=== PATIENT | female | born 1990 | race Caucasian/White ===

== ENCOUNTER 2025-04-19 16:52 | Emergency (ER) | payer OTHER, SELFPAY ==
--- OUTSIDE RECORDS SUMMARY | 2014-08-04 05:26 | XMS_ITS | Continuity of Care Document ---
Author Organization [facility] Address [address] [place] [address] Phone Care Team Providers Care Cup Machine Operator Name Role Phone Rikki Henderson MD Unavailable Unavailable Advance Directives Directive Yes / No Effective Date File Name No Information Encounters Encounter Description Practice Location Reason(s) For Visit Diagnoses Date Provider Providers Copied on Encounter [facility], [facility] [address] [place], [place], [id number], [place] tel:[phone] Psychiatry No Information Beatriz Brandt. [address] [facility], [address], [place], [place], [id number], [place]. tel:[phone] Family History Family Member Type Diagnosis Age At Onset No Information Payers Payer name Insurance type Covered green party ID Authoriza tion(s) No Information Social History Type Description Quantity Date Captured Comments Sex Female Smoking Status No Information Chief Complaint And Reason For Visit No Information History Of Present Illness Encounter Date Complaint History Of Prese nt Illness No Information Instructions Date Instruction Additional Infor mation No Information Assessments Type Assessment Date No Information
--- OUTSIDE RECORDS SUMMARY | 2025-04-15 04:30 | XMS_ITS ---
Author Organization [facility] Address [address] [place] [address] Care Team Providers Care Senior Clerk Name Role Phone Percy LUGO, Padmini Primary Care Provider Keyona Reyna Unavailable [phone] Nadeem Abdalla APRN Unavailable Unavailable Juliana Cao Unavailable [phone] REASON FOR VISIT Altered bowel habits, Diarrhea, unspecified type, Chronic gastritis without bleeding, unspecified Medications Medication SIG (Take, Route, Frequency, Duration) Notes Start Date End Date Status Dicyclomine HCl 20 MG 1 tablet Orally Three times a day as needed 03/25/2025 Active Lacosamide Active Levothyroxine Sodium *please rev iew for potential update for e-prescription and drug interaction check* Active Lisinopril 10 MG 1 tablet Orally am Active Mirtazapine 15 MG 1 tablet at bedtime Orally Once a day Active Amoxicillin-Pot Clavulanate 875-125 MG 1 tablet Orally every 12 hrs Active Atorvastatin Calcium 20 MG 1 tablet Orally Once a day Active Citalopram Hydrobromide 40 MG 1 capsule Orally pm Active Vimpat *please review f or potential update for e-prescription and drug interaction check* Unknown Zithromax Z-Quoc 250 MG 2 tablet on the first day, then 1 tablet daily for 4 days Orally Once a day for 5 day(s) 11/23/2011 Unknown Probiotic 1-250 BILLION-MG as directed Orally Active Sirolimus 2 MG 1 tablet Orally am Active Xcopri 200 MG 1 tablet Orally PM Active PROzac *please review f or potential update for e-prescription and drug interaction check* Unknown Sabril *please review f or potential update for e-prescription and drug interaction check* Unknown Pantoprazole Sodium 40 MG 1 tablets Orally twice a day for 90 days 03/26/2025 Active Pantoprazole Sodium 40 MG 1 tablet Orally twice a day Active Social History Tobacco Use: Social History Observation Description Date Details (start date - stop date) Never Smoker NA - NA Tobacco Control (Standard) Question Answer Notes Tobacco use: Nonsmoker Problems Problem Type SNOMED Code ICD Code Onset Dates Problem Status W/U Status Risk Notes Problem Dysphagia (33167487) Dysphagia, unspecified type (R13.10) Active confirmed Encounters Encounter Location Date Provider Diagnosis [facility] [address] [place] [address] DR [place], [place] [id number] 04/15/2025 Juliana Cao Dysphagia, unspecified type R13.10 ; History of gastroesophageal reflux (GERD) Z87.19 and Diarrhea, unspecified type R19.7 Assessments Encounter Date Diagnosis (ICD Code) Assessment Notes Treatment Notes Treatment Clinical Notes Section Notes 04/15/2025 Dysphagia, unspecified type (ICD-10 - R13.10) Proceed with diagnostic EGD today. 04/15/2025 History of gastroesophageal reflux (GERD) (ICD-10 - Z87.19) Proceed with diagnostic EGD today. 04/15/2025 Diarrhea, unspecified type (ICD-10 - R19.7) Proceed with diagnostic colonoscopy today. Plan Of Treatment Treatment Notes Assessment Notes Dysphagia, unspecified type Proceed with diagnostic EGD today. History of gastroesophageal reflux (GERD ) Proceed with diagnostic EGD today. Diarrhea, unspecified type Proceed with diagnostic colonoscopy today. 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 Altered bowel habits, Diarrhea, unspecified type, Chronic gastritis without bleeding, unspecified. * HPI: P jose Note: Ms. Briones is a 34-year-old female patient presenting today for diagnostic EGD and colonoscopy for evaluation of diarrhea, change in bowel habits, and reflux despite PPI therapy. The patient reports hospitalization in [place] at the beginning of March due to respiratory atelectasis and hypoxia. Patient with history of complicated tuberculosis, treated in [facility] clinic. Reflux uncontrolled despite daily pantoprazole, with occasional dysphagia. She reports cramping abdominal discomfort and frequent watery diarrhea over the last 2 months. * ROS: G eneral - Multi System: Constitutional D enies fever, chills, body aches. . C ardiovascular D enies c hest pain, palpitations or syncope. R espiratory D enies shortness of breath. G astrointestinal R eports dysphagia., See HPI. . * Medical History: T uberous sclerosis, Hypothryoidism. * Surgical History: K idney Ablasion 2017, Gall Bladder Removal 09/2023. * Family History: M other: alive. no family hx of colon cancer. * Social History: T obacco Use: T obacco Control (Standard) T obacco use: N onsmoker * Medications: T aking Citalopram Hydrobromide 40 MG Tablet 1 capsule Orally pm , Taking Dicyclomine HCl 20 MG Tablet 1 tablet Orally Three times a day as needed , Taking Lacosamide , Taking Levothyroxine Sodium , Notes to Pharmacist: *please review for potential update for e-prescription and drug interaction check*, Taking Lisinopril 10 MG Tablet 1 tablet Orally am , Taking Pantoprazole Sodium 40 MG Tablet Delayed Release 1 tablet Orally twice a day , Taking Pantoprazole Sodium 40 MG Tablet Delayed Release 1 tablets Orally twice a day , Taking Sirolimus 2 MG Tablet 1 tablet Orally am , Taking Xcopri 200 MG Tablet 1 tablet Orally PM , Taking Probiotic 1-250 BILLION-MG Capsule as directed Orally , Taking Amoxicillin-Pot Clavulanate 875-125 MG Tablet 1 tablet Orally every 12 hrs , Taking Mirtazapine 15 MG Tablet 1 tablet at bedtime Orally Once a day , Taking Atorvastatin Calcium 20 MG Tablet 1 tablet Orally Once a day , Unknown PROzac , Notes to Pharmacist: *please review for potential update for e- prescription and drug interaction check*, Unknown Sabril , Notes to Pharmacist: *please review for potential update for e-prescription and drug interaction check*, Unknown Vimpat , Notes to Pharmacist: *please review for potential update for e-prescription and drug interaction check*, Unknown Zithromax Z-Quoc 250 MG Tablet 2 tablet on the first day, then 1 tablet daily for 4 days Orally Once a day Objective: * Vitals: * Examination: G eneral Examination: GENERAL APPEARANCE: A lert, comfortable, in no acute distress. HEART: R egular rate and rhythm.. LUNGS: N on-labored respirations. Clear bilaterally. Symmetrical.. ABDOMEN: N ormal, Soft, Non-tender, positive bowel sounds.? Assessment: * Assessment: 1. D ysphagia, unspecified type - R13.10 (Primary) 2 . H istory of gastroesophageal reflux (GERD) - Z87.19 3 . D iarrhea, unspecified type - R19.7 ? Plan: * Treatment: 2. H istory of gastroesophageal reflux (GERD) Notes: Proceed with diagnostic EGD today. 3. D iarrhea, unspecified type Notes: Proceed with diagnostic colonoscopy today. * Billing Information: * Visit Code: * Procedure Codes: * Electronic signature of Abod kilo Cao MD on 04/19/2025 at 05:02 PM CDT Sign off status: Pending * Provider: Nickolas Cao MD Date: 04/15/2025 Generated for Taylor carias/Jack/Sarah on: 04/19/2025 05:02 PM CDT History and Physical Notes * HPI (History of Present Illness) Category Sub-Category Detail Notes Category Not es Provider Note Ms. Briones is a 34-year-old female patient presenting today for diagnostic EGD and colonoscopy for evaluation of diarrhea, change in bowel habits, and reflux despite PPI therapy. The patient reports hospitalization in [place] at the beginning of March due to respiratory atelectasis and hypoxia. Patient with history of complicated tuberculosis, treated in [facility] TB clinic. Reflux uncontrolled despite daily pantoprazole, with occasional dysphagia. She reports cramping abdominal discomfort and frequent watery diarrhea over the last 2 months. Examination Category Sub-Category Detail Notes Category Not es General Examination GENERAL APPEARANCE: Alert, c omfortable, in no acute distress HEART: Regular rate and rhy thm. LUNGS: Non-labored respirat ions. Clear bilaterally. Symmetrical. ABDOMEN: Normal, Soft, Non-te nder, positive bowel sounds
--- OUTSIDE RECORDS SUMMARY | 2025-04-15 10:51 | XMS_ITS ---
Author Organization [facility] Address [address] [place], [place] [id number] Care Team Providers Care Implementation Specialist Name Role Phone Padmini Greer Primary Care Provider REASON FOR VISIT medication Medications Medication SIG (Take, Route, Frequency, Duration) Notes Start Date End Date Status Levothyroxine Sodium 25 MCG 1 tablet in the morning on an empty stomach Oral Once a day for 30 days Active Atorvastatin Calcium 20 MG 1 tablet Oral Once a day for 30 days Active Lacosamide 200 MG 1 tablet Oral Twice a day for 30 days Active Sirolimus 1 MG 1 tablet Oral Once a day for 30 days Active Xcopri 200 MG 1 tablet Oral Once a day HS for 30 days Active Dicyclomine HCl 20 MG 1 tablet Orally Three times a day for 30 days for stomach 04/07/2025 Active Pantoprazole Sodium 40 MG 1 tablet about 1 hour before morning meal Oral twice a day for 30 days Active Lisinopril 10 MG 1 tablet Oral Once a day for 30 days Active Mirtazapine 7.5 MG 2 tablets Orally Once a day for 30 days for appetite 03/24/2025 Active home oxygen concentrator 2-3 L/min per NC to keep pulse ox above 93%. With associated supplies and with portable tanks, portable concentrator for 365 days Active oxygen concentrator Active Ondansetron 4 MG 1 tablet on the tongue and allow to dissolve Oral 3 times a day for 5 days As needed rx not sent Not-Taking Oxygen 2 Liters daily nasal prn Active Xcopri 50 MG 1 tablet Oral Once a day HS for 30 days stopped about a month ago Not-Taking Tylenol 325 MG 1 tablet as needed Orally every 6 hrs usually gives 2 tabs Active Citalopram Hydrobromide 40 MG 1 tablet Oral Once a day for 30 days Active Multivitamin - 1 tablet Orally Once a day Active MiraLax 17 GM/SCOOP 1 scoop mixed with 8 ounces of fluid Orally Once a day Active Biotin 5000 1 daily Active Famotidine 20 MG 1 tablet at bedtime for stomach Orally Once a day for 30 days 04/05/2025 Active Encounters Encounter Location Date Provider Diagnosis [facility] [address] [place] [phone] 04/15/2025 Padmini Greer Plan Of Treatment Next Appt Details Provider Name:Padmini conde, 05/13/2025 11:00:00 AM, [address], [place], [phone], Progress Notes * Jinny BRIONES DDOB:1990 (34 yo F)Acc No.[id number]:04/15/2025 Patient: Rafaela Jinny WATTERS :1990 A ge:34 Y S ex:Female Address:[address] [place] [address], [place], [address] Subjective: * Chief Complaints: * M edication * Medical History: * Surgical History: * Hospitalization/Major Diagno stic Procedure: * Medications: T akingTylenol 325 MG Tablet 1 tablet as needed Orally every 6 hrs , Notes to Pharmacist: usually gives 2 tabshome oxygen concentrator 2-3 L/min per NC to keep pulse ox above 93%. With associated supplies and with portable tanks, portable concentrator Pantoprazole Sodium 40 MG Tablet Delayed Release 1 tablet about 1 hour before morning meal Oral twice a day Dicyclomine HCl 20 MG Tablet 1 tablet Orally Three times a day for stomachMirtazapine 7.5 MG Tablet 2 tablets Orally Once a day for appetiteLisinopril 10 MG Tablet 1 tablet Oral Once a day Atorvastatin Calcium 20 MG Tablet 1 tablet Oral Once a day Levothyroxine Sodium 25 MCG Tablet 1 tablet in the morning on an empty stomach Oral Once a day Sirolimus 1 MG Tablet 1 tablet Oral Once a day Lacosamide 200 MG Tablet 1 tablet Oral Twice a day Xcopri 200 MG Tablet 1 tablet Oral Once a day HS Famotidine 20 MG Tablet 1 tablet at bedtime for stomach Orally Once a day Citalopram Hydrobromide 40 MG Tablet 1 tablet Oral Once a day MiraLax 17 GM/SCOOP Powder 1 scoop mixed with 8 ounces of fluid Orally Once a day Multivitamin - Tablet 1 tablet Orally Once a day Biotin 5000 , Notes to Pharmacist: 1 dailyoxygen concentrator Oxygen 2 Liters nasal canula daily nasal prn Taking Tylenol 325 MG Tablet 1 tablet as needed Orally every 6 hrs , Notes to Pharmacist: usually gives 2 tabsTaking home oxygen concentrator 2-3 L/min per NC to keep pulse ox above 93%. With associated supplies and with portable tanks, portable concentrator Taking Pantoprazole Sodium 40 MG Tablet Delayed Release 1 tablet about 1 hour before morning meal Oral twice a day Taking Dicyclomine HCl 20 MG Tablet 1 tablet Orally Three times a day for stomachTaking Mirtazapine 7.5 MG Tablet 2 tablets Orally Once a day for appetiteTaking Lisinopril 10 MG Tablet 1 tablet Oral Once a day Taking Atorvastatin Calcium 20 MG Tablet 1 tablet Oral Once a day Taking Levothyroxine Sodium 25 MCG Tablet 1 tablet in the morning on an empty stomach Oral Once a day Taking Sirolimus 1 MG Tablet 1 tablet Oral Once a day Taking Lacosamide 200 MG Tablet 1 tablet Oral Twice a day Taking Xcopri 200 MG Tablet 1 tablet Oral Once a day HS Taking Famotidine 20 MG Tablet 1 tablet at bedtime for stomach Orally Once a day Taking Citalopram Hydrobromide 40 MG Tablet 1 tablet Oral Once a day Taking MiraLax 17 GM/SCOOP Powder 1 scoop mixed with 8 ounces of fluid Orally Once a day Taking Multivitamin - Tablet 1 tablet Orally Once a day Taking Biotin 5000 , Notes to Pharmacist: 1 dailyTaking oxygen concentrator Taking Oxygen 2 Liters nasal canula daily nasal prn Not-TakingOndansetron 4 MG Tablet Disintegrating 1 tablet on the tongue and allow to dissolve Oral 3 times a day As needed, Notes to Pharmacist: rx not sentXcopri 50 MG Tablet 1 tablet Oral Once a day HS , Notes to Pharmacist: stopped about a month agoMedication List reviewed and reconciled with the patientNot-Taking Ondansetron 4 MG Tablet Disintegrating 1 tablet on the tongue and allow to dissolve Oral 3 times a day As needed, Notes to Pharmacist: rx not sentNot-Taking Xcopri 50 MG Tablet 1 tablet Oral Once a day HS , Notes to Pharmacist: stopped about a month agoMedication List reviewed and reconciled with the patient Objective: * Vitals: * Physical Examination: Assessment: Plan: * Treatment: * Procedure Codes: * * Date:
[2025-04-19] VITALS (7 sets, daily range): BP systolic 97–118; BP diastolic 60–77; PULSE 98–119; RESP 16–18; TEMP 37.6; O2SAT 89–94; BMI 30.2
--- NOTE | 2025-04-19 16:57 | XRR_ITS ---
PROCEDURE INFORMATION: Exam: XR Chest Exam date and time: 04/19/2025 6:05 PM Age: 34 years old Clinical indication: Dyspnea; Additional info: Dyspnea/cough TECHNIQUE: Imaging protocol: Radiologic exam of the chest. Views: 1 view. COMPARISON: No relevant prior studies available. FINDINGS: Lungs: Bibasilar atelectasis versus infiltrate. Pleural spaces: Moderate right and small left pleural effusion. Heart/Mediastinum: Cardiomegaly. Bones/joints: Unremarkable. XR/XR chest 1V portable [id number] IMPRESSION: 1. Moderate right and small left pleural effusion. 2. Bibasilar atelectasis versus infiltrate. 3. Cardiomegaly.
--- OUTSIDE RECORDS SUMMARY | 2025-04-19 17:02 | XMS_ITS | Patient Health Record ---
Author Organization [facility] Address [address] [place], [place] [id number] Care Team Providers Care Bar Examiner Name Role Phone Greer Padmini Primary Care Provider Allergies No Known Allergies Results Component Value Reference Range Notes Alpha Gal Panel Reviewed date:04/15/2025 03:07:05 PM Interpretation:Normal Performing Lab: Notes/Report: Testing performed by reference lab. [facility] Reported Date/Time: [facility] Results Received Date/Time: [facility] Collection Date/Time: Testing performed at: , [facility],, [address] [place] [address], [address], Software Integrator: Laina Taylor MD,PhD,LAILA [facility] Reported Date/Time: [facility] Results Received Date/Time: [facility] Collection Date/Time: Testing performed at: [employer], [facility], [address] [place], [address], Software Integrator: Irene Luther MD [facility] Reported Date/Time: [facility] Results Received Date/Time: [facility] Collection Date/Time: Testing performed at: [place], [facility], [address] [facility], [place], [address], Software Integrator: Irene Luther MD [facility] Reported Date/Time: [facility] Results Received Date/Time: [id number] [facility] Collection Date/Time: Testing performed at: [facility], [place], [address], Software Integrator: Irene Luther MD [facility] BEEF (F27) IGE <0.10 CLASS 0 ESQUIVEL (F88) IGE <0.10 CLASS 0 PORK (F26) IGE <0.10 CLASS 0 GALACTOSE ALPHA 1,3 GALACTOS E IGE <0.10 <0.10 kU/L Results above 0.1 kU/L indicate an allergen-specific IgE sensitization to zlfnrwzpc-k-9,3-galactose, and such patients are at risk for delayed allergic reactions following beef, pork, or esquivel consumption. Circulating IgE antibodies may remain undetectable despite a convincing clinical history because these antibodies may be directed towards allergens revealed or altered during industrial processing, cooking, or digestion and therefore do not exist in the original food for which the patient is tested. Sometimes individuals diagnosed with chronic urticaria may develop IgE antibodies directed against human thyroglobulin. Such antibodies may cross-react with the bovine thyroglobulin used in ImmunoCAP(R) Allergen o215, alpha-Gal, leading to a false-positive test result. A definitive diagnosis should be based on the evaluation of both clinical and laboratory findings and not on any single diagnostic method. Additional information can be found at [email or web address] Reviewed date:04/15/2025 03:07:05 PM Interpretation:Normal Performing Lab: Notes/Report: Testing performed by reference lab. [facility] Reported Date/Time: [id number] [facility] Results Received Date/Time: [id number] [facility] Collection Date/Time: [id number] Testing performed at: [facility], [place], [address], Software Integrator: Irene Luther MD [facility] EGG WHITE (F1) IGE <0.10 CLASS 0 PEANUT (F13) IGE <0.10 CLASS 0 WHEAT (F4) IGE <0.10 CLASS 0 WALNUT (F256) IGE <0.10 CLASS 0 CODFISH (F3) IGE <0.10 CLASS 0 COW'S MILK (F2) IGE <0.10 CLASS 0 SOYBEAN (F14) IGE <0.10 CLASS 0 SHRIMP (F24) IGE <0.10 CLASS 0 SCALLOP (F338) IGE <0.10 CLASS 0 SESAME SEED (F10) IGE <0.10 CLASS 0 HAZELNUT (F17) IGE <0.10 CLASS 0 CASHEW NUT (F202) IGE <0.10 CLASS 0 ALMOND (F20) IGE <0.10 CLASS 0 SALMON (F41) IGE <0.10 CLASS 0 TUNA (F40) IGE <0.10 CLASS 0 Urine Dip Reviewed date:04/15/2025 03:07:05 PM Interpretation:OK for Patient Performing Lab: Notes/Report: Testing performed at the [address] [place] [address] location. Celiac Disease Comprehensive Panel (>4 years old-Adults) Reviewed date:04/15/2025 03:07:05 PM Interpretation:Abnormal Performing Lab: Notes/Report: Testing performed by reference lab. [facility] Reported Date/Time: [id number] [facility] Results Received Date/Time: [id number] [facility] Collection Date/Time: Testing performed at: , [facility], [address], Software Integrator: Enrique Jimenez INTERPRETATION SEE NOTE No serological evidence of celiac disease. Total serum IgA is elevated. Consider mucosal inflammatory conditions or underlying gammopathy. TISSUE TRANSGLUTAMINASE AB, IGA <1.0 Value Interpretation ----- <15.0 Antibody not detected > or = 15.0 Antibody detected IMMUNOGLOBULIN A 354 47-310 mg/dL X ray : CHEST PA LATERAL Reviewed date:04/01/2025 09:06:31 AM Interpretation:Abnormal Performing Lab: Notes/Report: Abnormal X ray : Acute Abdominal Seri es Reviewed date:04/01/2025 09:06:31 AM Interpretation:OK for Patient Performing Lab: Notes/Report: OK for Patient zzInterpretation Reviewed date:04/08/2025 03:40:05 PM Interpretation:Non therapeutic Performing Lab: Notes/Report: [facility] Testing performed at: [place], [facility], [address] [facility], [place], [address], Software Integrator: Irene Luther MD [facility] Collection Date/Time: [facility] Results Received Date/Time: [id number] [facility] Reported Date/Time: [id number] Testing performed by reference lab. INTERPRETATION SEE NOTE Specific Level of Allergen IGE Class kU/L Specific IGE Antibody ----- --------- 0 <0.10 Absent/Undetectable 0/1 0.10-0.34 Very Low Level 1 0.35-0.69 Low Level 2 0.70-3.49 Moderate Level 3 3.50-17.4 High Level 4 17.5-49.9 Very High Level 5 50-100 Very High Level 6 >100 Very High Level The clinical relevance of allergen results of 0.10-0.34 kU/L are undetermined and intended for specialist use. Allergens denoted with a include results using one or more analyte specific reagents. In those cases, the test was developed and its analytical performance characteristics have been determined by [facility]. It has not been cleared or approved by the U.S. Food and Drug Administration. This assay has been validated pursuant to the CLIA regulations and is used for clinical purposes. Reason For Referral Reason 03/26 faxed acute resp failure, tuberous sclerosis, question of DOMINGUEZ, RAJINDER Duplicate Referral, patient is being seen by [facility] Pulmonology Diagnosis 1 Acute respiratory fa ilure with hypoxia (J96.01) Referral Organization [address] [place] [address] are [place] Referring Provider First Name Padmini Referring Provider Last Name Percy Referring Provider Speciality [facility] Referred Provider [facility] Referred Provider Specialty Pulmonary Di seases General Notes Padmini Greer 03/24/2025 03:22:37 PM >Elizabeth Padilla pleaseLandon Lorna 03/26/2025 03:46:40 PM >Spoke with [facility]. Referral faxed. Will monitor for appointment.Landon Lorna 04/07/2025 09:00:48 AM >Duplicate referrals were entered. Patient has been seen by Dr Pritchett @ [facility]. Referral Priority Routine Reason 03/26 faxed to [facility] ABG's Diagnosis 1 Acute respiratory fa ilure with hypoxia (J96.01) Referral Organization [address] [place] [address] are [place] Referring Provider First Name Padmini Referring Provider Last Name Percy [facility]erred Provider [facility] Referred Provider Specialty Outpatient T esting Procedure 1 PHLEBOTOMY ([id number]) General Notes Jania Navarrete 03:54:43 PM > When I called patient, spoke with Mom (guardian), she was at ER @ [facility]. I faxed this order to them., Diya Arce 04/01/2025 11:26:18 AM >Spoke with [facility], patient did show... I checked chart, the ER notes and ABG's are in the chart already Referral Priority Routine Referral Appointment Date 03/26/2025 Reason 03/26 faxed TS, e levated BNP during hospitalization Diagnosis 1 Tuberous sclerosis ( Q85.1) Referral Organization [address] [place] [address] are [place] Referring Provider First Name Padmini Referring Provider Last Name Percy Referring Provider [facility] ctice Referred Provider [facility] Referred Provider Specialty Cardiology General Notes Padmini Greer 03/24/2025 03:24:34 PM >Elizabeth Holcomb thanks, Lee, Lorna 03/26/2025 03:50:01 PM > referral faxed. 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) Diagnosis 5 Essential hypertensi on (I10) Referral Organization [address] [place] [address] are [place] Referring Provider First Name Padmini Referring Provider Last Name Percy [facility]erred Provider [facility] ealt Referred Provider Specialty Home Health General Notes Mom, guardian, prefe [facility] to monitor pulmonary status, Oxygen levels, breath sounds, etc., Diya Arce 03/29/2025 02:07:08 PM >Faxed referral with ov notes, Jania Navarrete 04/15/2025 03:25:05 PM >received plan of care, with notes. Service began 03/30/2025. 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 Greer last week). This will go to Dr. Pritchett, hotel or motel manager in [place]. This need to say Attn Nicole., Diya Arce 03/29/2025 10:39:41 AM >Faxed referral with ov and Arn[facility] notes. Attempted to call Dr Pritchett's office, no answer, left voicemail letting them know I am sending a STAT referral., Diya Arce 03/29/2025 04:55:50 PM >Per TE patient has been scheduled on 03/31/2025 @ 2:30pm and mom has been notified, Jania Navarrete 04/07/2025 08:58:08 AM >Per Dr Brown's office, appointment was kept. Record requested. Referral Priority Stat Referral Appointment Date 03/31/2025 Medications Medication SIG (Take, Route, Frequency, Duration) Notes Start Date End Date Status Citalopram Hydrobromide 40 MG 1 tablet Oral Once a day for 30 days Active Dicyclomine HCl 20 MG 1 tablet Orally Three times a day for 30 days for stomach 04/07/2025 Active Multivitamin - 1 tablet Orally Once a day Active Pantoprazole Sodium 40 MG 1 tablet about 1 hour before morning meal Oral twice a day for 30 days Active MiraLax 17 GM/SCOOP 1 scoop mixed with 8 ounces of fluid Orally Once a day Active Lisinopril 10 MG 1 tablet Oral Once a day for 30 days Active oxygen concentrator Active Mirtazapine 7.5 MG 2 tablets Orally Once a day for 30 days for appetite 03/24/2025 Active Biotin 5000 1 daily Active Levothyroxine Sodium 25 MCG 1 tablet in the morning on an empty stomach Oral Once a day for 30 days Active Ondansetron 4 MG 1 tablet on the tongue and allow to dissolve Oral 3 times a day for 5 days As needed rx not sent Not-Taking Atorvastatin Calcium 20 MG 1 tablet Oral Once a day for 30 days Active Oxygen 2 Liters daily nasal prn Active Lacosamide 200 MG 1 tablet Oral Twice a day for 30 days Active Sirolimus 1 MG 1 tablet Oral Once a day for 30 days Active Xcopri 50 MG 1 tablet Oral Once a day HS for 30 days stopped about a month ago Not-Taking Tylenol 325 MG 1 tablet as needed Orally every 6 hrs usually gives 2 tabs Active Famotidine 20 MG 1 tablet at bedtime for stomach Orally Once a day for 30 days 04/05/2025 Active Xcopri 200 MG 1 tablet Oral Once a day HS for 30 days Active home oxygen concentrator 2-3 L/min per NC to keep pulse ox above 93%. With associated supplies and with portable tanks, portable concentrator for 365 days Active Social History Tobacco Use: Social History Observation Description Date Details (start date - stop date) Never Smoker NA - NA Have you ever had an STD Question Answer Notes Have you ever had an STD No Prevention Strategies Discussed Abstinence CAGE-AID Questionnaire (2018 Edition)- Question Answer Notes Have you ever felt that you ought to cut down on your drinking or drug use? No Have people annoyed you by criticizing your drin aaron or drug use? No Have you ever felt bad or guilty about your drin aaron or drug use? No Have you ever had a drink or used drugs first thing in the morning to steady your nerves or to get rid of a hangover? No CAGE-AID Score 0 Interpretation Negative Tobacco Control (Standard) Question Answer Notes Tobacco use: Nonsmoker Problems Problem Type SNOMED Code ICD Code Onset Dates Problem Status W/U Status Risk Notes Problem Overweight (031801639) Overweight (E66.3) Active confirmed Problem 66044679 Essential hypertension (I10) Active confirmed Problem 74533179 RAJINDER (obstructive sleep apnea) (G47.33) Active confirmed Problem 164826526 Gastroesophageal reflux disease without esophagitis (K21.9) Active confirmed Problem 36763414 Acute respirator y failure with hypoxia (J96.01) Active confirmed Problem 1267998 Tuberous scleros is (Q85.1) Active confirmed Problem 19122658 Hyperlipidemia, unspecified hyperlipidemia type (E78.5) Active confirmed Problem 39514967 Hypothyroidism, unspecified type (E03.9) Active confirmed Problem 39803533 Nonintractable epilepsy without status epilepticus, unspecified epilepsy type (G40.909) Active confirmed Problem 41024852 Decreased appeti te (R63.0) Active confirmed Problem 395576025 Chronic GERD (K21.9) Active confirmed Problem 45665885 Recurrent major depressive disorder, remission status unspecified (F33.9) Active confirmed Problem 239381988 Stage 2 chronic kidney disease (N18.2) Active confirmed Vital Signs Heart Rate 100 /min 04/07/2025 Temperature 97.7 degrees Fahrenheit 04/07/2025 Respiratory Rate 16 /min 04/07/2025 Blood pressure diastolic 76 mm Hg 04/07/2025 Oximetry 96 04/07/2025 Height-cm 167.64 cm 04/07/2025 Weight-kg 89.09 Kg 04/07/2025 Height 66.0 in 04/07/2025 Blood pressure systolic 120 mm Hg 04/07/2025 Weight 196.4 lbs 04/07/2025 BMI 31.7 kg/m2 04/07/2025 Encounters Encounter Location Date Provider Diagnosis [facility] [place] [address] [place] [id number] 03/24/2025 Padmini Greer Tuberous sclerosis Q85.1 ; Hospital discharge follow-up Z09 ; Chronic GERD K21.9 ; Chronic constipation K59.09 ; RAJINDER (obstructive sleep apnea) G47.33 ; Nonintractable epilepsy without status epilepticus, unspecified epilepsy type G40.909 ; Stage 2 chronic kidney disease N18.2 ; Essential hypertension I10 ; Hypothyroidism, unspecified type E03.9 ; Hyperlipidemia, unspecified hyperlipidemia type E78.5 ; Recurrent major depressive disorder, remission status unspecified F33.9 ; Acute respiratory failure with hypoxia J96.01 ; Dietary counseling Z71.3 ; Decreased appetite R63.0 and Overweight E66.3 [facility] [place] [address] [place], [place] [id number] 04/07/2025 Padmini Greer Chronic GERD K21.9 ; Stage 2 chronic kidney disease N18.2 ; Acute respiratory failure with hypoxia J96.01 ; Essential hypertension I10 ; Nonintractable epilepsy without status epilepticus, unspecified epilepsy type G40.909 ; Tuberous sclerosis Q85.1 ; RAJINDER (obstructive sleep apnea) G47.33 ; Overweight E66.3 and Dietary counseling Z71.[address] [place] [address] Healthcare [place] [address] [place], [place] [id number] 04/15/2025 Padmini [facility] [place] [address] [place], [place] [id number] 04/19/2025 Padmini Gre[facility] [place] [address] [place], [place] [id number] 03/23/2025 Padmini Greer [address] [place] [address] Healthcare [place] [address] [place], [place] [id number] 03/26/2025 Padmini Gre[facility] [place] [address] [place], [place] [id number] 03/26/2025 Padmini Greer Acute respiratory failure with hypoxia J96.[address] [place] [address] [facility] [address] [place] [address], [place] [address] 03/26/2025 Padmini Gre[facility] [place] [address] [place], [place] [id number] 03/28/2025 Padmini Greer [address] [place] [address] Healthcare [place] [address] [place], [place] [id number] 03/29/2025 Padmini Greer [facility] [place] [address] [place], [place] [id number] 03/29/2025 Padmini Greer [facility] [place] [address] [place], [place] [id number] 04/05/2025 Padmini Greer Gastroesophageal ref lux disease without esophagitis K21.[address] [place] [address] Healthcare [facility] [place] [address] 04/06/2025 Padmini Percy Assessments Encounter Date Diagnosis (ICD Code) Assessment Notes Treatment Notes Treatment Clinical Notes Section Notes 03/24/2025 Hospital discharge follow-up (ICD-10 - Z09) 03/24/2025 Tuberous sclerosis (ICD-10 - Q85.1) 03/26/2025 Acute respiratory failure with hypoxia (ICD-10 - J96.01) 04/05/2025 Gastroesophageal reflux disease without esophagitis (ICD-10 - K21.9) 04/07/2025 Chronic GERD (ICD-10 - K21.9) Add fiber per package directions, begin with 1/4 of the recommended daily dose and gradually increase to the daily recommended dose over the next few weeks as tolerated. Change your eating habits. -It's best to eat several small meals instead of two or three large meals. -After you eat, wait 2 to 3 hours before you lie down. -Chocolate, mint, and alcohol can make GERD worse. -Spicy foods, foods that have a lot of acid (like tomatoes and oranges), and coffee can make GERD symptoms worse in some people. If your symptoms are worse after you eat a certain food, you may want to stop eating that food to see if your symptoms get better. -Do not smoke or chew tobacco. Smoking can make GERD worse. If you need help quitting, talk to your doctor about stop-smoking programs and medicines. These can increase your chances of quitting for good. -If you have GERD symptoms at night, raise the head of your bed 6 to 8 inches by putting the frame on blocks or placing a foam wedge under the head of your mattress. (Adding extra pillows does not work.) -Do not wear tight clothing around your middle. -Lose weight if you need to. Losing just 5 to 10 pounds can help. 04/07/2025 Stage 2 chronic kidney disease (ICD-10 - N18.2) Chronic kidney disease happens when your kidneys don't work as well as they should. Your kidneys have a few important jobs. They remove waste from your blood. This waste leaves your body in your urine. They also balance your body's fluids and chemicals. The most common causes of this disease are diabetes and high blood pressure. In some cases, the disease develops in 2 to 3 months. But it usually develops over many years. If you take medicine and make healthy changes to your lifestyle, you may be able to prevent the disease from getting worse. Avoid ibuprofen and aleve, continue to keep blood pressure under good control, drink plenty of water and keep salt/sodium intake under 2000 mg a day. These actions can help to protect your kidney function 04/07/2025 Acute respiratory failure with hypoxia (ICD-10 - J96.01) 03/24/2025 Chronic GERD (ICD-10 - K21.9) Change your eating habits. -It's best to eat several small meals instead of two or three large meals. -After you eat, wait 2 to 3 hours before you lie down. -Chocolate, mint, and alcohol can make GERD worse. -Spicy foods, foods that have a lot of acid (like tomatoes and oranges), and coffee can make GERD symptoms worse in some people. If your symptoms are worse after you eat a certain food, you may want to stop eating that food to see if your symptoms get better. -Do not smoke or chew tobacco. Smoking can make GERD worse. If you need help quitting, talk to your doctor about stop-smoking programs and medicines. These can increase your chances of quitting for good. -If you have GERD symptoms at night, raise the head of your bed 6 to 8 inches by putting the frame on blocks or placing a foam wedge under the head of your mattress. (Adding extra pillows does not work.) -Do not wear tight clothing around your middle. -Lose weight if you need to. Losing just 5 to 10 pounds can help. 03/24/2025 Chronic constipation (ICD-10 - K59.09) Drink plenty of fluids. If you have kidney, heart, or liver disease and have to limit fluids, talk with your doctor before you increase the amount of fluids you drink. -Include high-fiber foods in your diet each day. These include fruits, vegetables, beans, and whole grains. -Get at least 30 minutes of exercise on most days of the week. Walking is a good choice. You also may want to do other activities, such as running, swimming, cycling, or playing tennis or team sports. -Take a fiber supplement, such as Citrucel or Metamucil, every day. Read and follow all instructions on the label. -Schedule time each day for a bowel movement. A daily routine may help. Take your time having your bowel movement. -Support your feet with a small step stool when you sit on the toilet. This helps flex your hips and places your pelvis in a squatting position. -Your doctor may recommend an uvmi-hyo-zjdifug laxative to relieve your constipation. Examples are Milk of Magnesia and MiraLax. Read and follow all instructions on the label. Do not use laxatives on a long-term basis. When should you call for help? Call your doctor now or seek immediate medical care if: -You have new or worse belly pain. -You have new or worse nausea or vomiting. -You have blood in your stools. Watch closely for changes in your health, and be sure to contact your doctor if: -Your constipation is getting worse. -You do not get better as expected 04/07/2025 Essential hypertension (ICD-10 - I10) It's normal for blood pressure to go up and down throughout the day. But if it stays up, you have high blood pressure. Another name for high blood pressure is hypertension. For diagnosis, the top number may be 130 to 140 or higher. The bottom number may be 80 to 90 or higher. Despite what a lot of people think, high blood pressure usually doesn't cause headaches or make you feel dizzy or lightheaded. It usually has no symptoms. But it does increase your risk of stroke, heart attack, and other problems. You and your doctor will talk about your risks of these problems based on your blood pressure. Your doctor will give you a goal for your blood pressure. Your goal will be based on your health and your age. Lifestyle changes, such as eating healthy and being active, are always important to help lower blood pressure. You might also take medicine to reach your blood pressure goal. Follow-up care is a sena part of your treatment and safety. Be sure to make and go to all appointments, and call your doctor if you are having problems. It's also a good idea to know your test results and keep a list of the medicines you take. How can you care for yourself at home? Medical treatment If you stop taking your medicine, your blood pressure will go back up. You may take one or more types of medicine to lower your blood pressure. Be safe with medicines. Take your medicine exactly as prescribed. Call your doctor if you think you are having a problem with your medicine. Talk to your doctor before you start taking aspirin every day. Aspirin can help certain people lower their risk of a heart attack or stroke. But taking aspirin isn't right for everyone, because it can cause serious bleeding. See your doctor regularly. You may need to see the doctor more often at first or until your blood pressure comes down. If you are taking blood pressure medicine, talk to your doctor before you take decongestants or anti-inflammatory medicine, such as ibuprofen. Some of these medicines can raise blood pressure. Learn how to check your blood pressure at home. Lifestyle changes Stay at a healthy weight. This is especially important if you put on weight around the waist. Losing even 10 pounds can help you lower your blood pressure. If your doctor recommends it, get more exercise. Walking is a good choice. Bit by bit, increase the amount you walk every day. Try for at least 30 minutes on most days of the week. You also may want to swim, bike, or do other activities. Avoid or limit alcohol. Talk to your doctor about whether you can drink any alcohol. Try to limit how much sodium you eat to less than 2,300 milligrams (mg) a day. Your doctor may ask you to try to eat less than 1,500 mg a day. Eat plenty of fruits (such as bananas and oranges), vegetables, legumes, whole grains, and low-fat dairy products. Lower the amount of saturated fat in your diet. Saturated fat is found in animal products such as milk, cheese, and meat. Limiting these foods may help you lose weight and also lower your risk for heart disease. Do not smoke. Smoking increases your risk for heart attack and stroke. If you need help quitting, talk to your doctor about stop-smoking programs and medicines. These can increase your chances of quitting for good. When should you call for help? Call 911 anytime you think you may need emergency care. This may mean having symptoms that suggest that your blood pressure is causing a serious heart or blood vessel problem. Your blood pressure may be over 180/120. For example, call 911 if: You have symptoms of a heart attack. These may include: Chest pain or pressure, or a strange feeling in the chest. Sweating. Shortness of breath. Nausea or vomiting. Pain, pressure, or a strange feeling in the back, neck, jaw, or upper belly or in one or both shoulders or arms. Lightheadedness or sudden weakness. A fast or irregular heartbeat. You have symptoms of a stroke. These may include: Sudden numbness, tingling, weakness, or loss of movement in your face, arm, or leg, especially on only one side of your body. Sudden vision changes. Sudden trouble speaking. Sudden confusion or trouble understanding simple statements. Sudden problems with walking or balance. A sudden, severe headache that is different from past headaches. You have severe back or belly pain. Do not wait until your blood pressure comes down on its own. Get help right away. Call your doctor now or seek immediate care if: Your blood pressure is much higher than normal (such as 180/120 or higher), but you don't have symptoms. You think high blood pressure is causing symptoms, such as: Severe headache. Blurry vision. Watch closely for changes in your health, and be sure to contact your doctor if: Your blood pressure measures higher than your doctor recommends at least 2 times. That means the top number is higher or the bottom number is higher, or both. You think you may be having side effects from your blood pressure medicine. 04/07/2025 Nonintractable epilepsy without status epilepticus, unspecified epilepsy type (ICD-10 - G40.909) 03/24/2025 RAJINDER (obstructive sleep apnea) (ICD-10 - G47.33) Lose weight, if needed. Sleep on your side. It may help mild apnea. Avoid alcohol and medicines such as sleeping pills, opioids, or sedatives before bed. Don't smoke. If you need help quitting, talk to your doctor. Prop up the head of your bed. Treat breathing problems, such as a stuffy nose, that are caused by a cold or allergies. Try a continuous positive airway pressure (CPAP) breathing machine if your doctor recommends it. If CPAP doesn't work for you, ask your doctor if you can try other masks, settings, or breathing machines. Try oral breathing devices or other nasal devices. Talk to your doctor if your nose feels dry or bleeds, or if it gets runny or stuffy when you use a breathing machine. Tell your doctor if you're sleepy during the day and it affects your daily life. Don't drive or operate machinery when you're drowsy. Watch closely for changes in your health, and be sure to contact your doctor if: You still have sleep apnea even though you have made lifestyle changes. You are thinking of trying a device such as CPAP. You are having problems using a CPAP or similar machine. You are still sleepy during the day, and it affects your daily life. 03/24/2025 Nonintractable epilepsy without status epilepticus, unspecified epilepsy type (ICD-10 - G40.909) Seizures are caused by abnormal patterns of electrical signals in the brain. They are different for each person.Seizures can affect movement, speech, vision, or awareness. Some people have only slight shaking of a hand and do not pass out. Other people may pass out and have shaking of the whole body. Some people appear to stare into space. They are awake, but they can't respond normally. Later, they may not remember what happened.You may need tests to identify the type and cause of the seizures.A seizure may occur only once, or you may have them more than one time. Taking medicines as directed and following up with your doctor may help keep you from having more seizures.The doctor has checked you carefully, but problems can develop later. If you notice any problems or new symptoms, get medical treatment right away. Follow-up care is a sena part of your treatment and safety. Be sure to make and go to all appointments, and call your doctor if you are having problems. It's also a good idea to know your test results and keep a list of the medicines you take. How can you care for yourself at home? Be safe with medicines. Take your medicines exactly as prescribed. Call your doctor if you think you are having a problem with your medicine. Do not do any activity that could be dangerous to you or others until your doctor says it is safe to do so. For example, do not drive a car, operate machinery, swim, or climb ladders. Be sure that anyone treating you for any health problem knows that you have had a seizure and what medicines you are taking for it. Identify and avoid things that may make you more likely to have a seizure. These may include lack of sleep, alcohol or drug use, stress, or not eating. If possible, take a shower instead of a bath. Having a seizure while in a bath can increase the risk of drowning. Call 911 anytime you think you may need emergency care. For example, call if: You have another seizure. You have new symptoms, such as trouble walking, speaking, or thinking clearly. Call your doctor now or seek immediate medical care if: You are not acting normally. Watch closely for changes in your health, and be sure to contact your doctor if you have any problems. 04/07/2025 Tuberous sclerosis (ICD-10 - Q85.1) 04/07/2025 RAJINDER (obstructive sleep apnea) (ICD-10 - G47.33) Lose weight, if needed. Sleep on your side. It may help mild apnea. Avoid alcohol and medicines such as sleeping pills, opioids, or sedatives before bed. Don't smoke. If you need help quitting, talk to your doctor. Prop up the head of your bed. Treat breathing problems, such as a stuffy nose, that are caused by a cold or allergies. Try a continuous positive airway pressure (CPAP) breathing machine if your doctor recommends it. If CPAP doesn't work for you, ask your doctor if you can try other masks, settings, or breathing machines. Try oral breathing devices or other nasal devices. Talk to your doctor if your nose feels dry or bleeds, or if it gets runny or stuffy when you use a breathing machine. Tell your doctor if you're sleepy during the day and it affects your daily life. Don't drive or operate machinery when you're drowsy. Watch closely for changes in your health, and be sure to contact your doctor if: You still have sleep apnea even though you have made lifestyle changes. You are thinking of trying a device such as CPAP. You are having problems using a CPAP or similar machine. You are still sleepy during the day, and it affects your daily life. 03/24/2025 Stage 2 chronic kidney disease (ICD-10 - N18.2) Chronic kidney disease happens when your kidneys don't work as well as they should. Your kidneys have a few important jobs. They remove waste from your blood. This waste leaves your body in your urine. They also balance your body's fluids and chemicals. The most common causes of this disease are diabetes and high blood pressure. In some cases, the disease develops in 2 to 3 months. But it usually develops over many years. If you take medicine and make healthy changes to your lifestyle, you may be able to prevent the disease from getting worse. Avoid ibuprofen and aleve, continue to keep blood pressure under good control, drink plenty of water and keep salt/sodium intake under 2000 mg a day. These actions can help to protect your kidney function 03/24/2025 Essential hypertension (ICD-10 - I10) It's normal for blood pressure to go up and down throughout the day. But if it stays up, you have high blood pressure. Another name for high blood pressure is hypertension. For diagnosis, the top number may be 130 to 140 or higher. The bottom number may be 80 to 90 or higher. Despite what a lot of people think, high blood pressure usually doesn't cause headaches or make you feel dizzy or lightheaded. It usually has no symptoms. But it does increase your risk of stroke, heart attack, and other problems. You and your doctor will talk about your risks of these problems based on your blood pressure. Your doctor will give you a goal for your blood pressure. Your goal will be based on your health and your age. Lifestyle changes, such as eating healthy and being active, are always important to help lower blood pressure. You might also take medicine to reach your blood pressure goal. Follow-up care is a sena part of your treatment and safety. Be sure to make and go to all appointments, and call your doctor if you are having problems. It's also a good idea to know your test results and keep a list of the medicines you take. How can you care for yourself at home? Medical treatment If you stop taking your medicine, your blood pressure will go back up. You may take one or more types of medicine to lower your blood pressure. Be safe with medicines. Take your medicine exactly as prescribed. Call your doctor if you think you are having a problem with your medicine. Talk to your doctor before you start taking aspirin every day. Aspirin can help certain people lower their risk of a heart attack or stroke. But taking aspirin isn't right for everyone, because it can cause serious bleeding. See your doctor regularly. You may need to see the doctor more often at first or until your blood pressure comes down. If you are taking blood pressure medicine, talk to your doctor before you take decongestants or anti-inflammatory medicine, such as ibuprofen. Some of these medicines can raise blood pressure. Learn how to check your blood pressure at home. Lifestyle changes Stay at a healthy weight. This is especially important if you put on weight around the waist. Losing even 10 pounds can help you lower your blood pressure. If your doctor recommends it, get more exercise. Walking is a good choice. Bit by bit, increase the amount you walk every day. Try for at least 30 minutes on most days of the week. You also may want to swim, bike, or do other activities. Avoid or limit alcohol. Talk to your doctor about whether you can drink any alcohol. Try to limit how much sodium you eat to less than 2,300 milligrams (mg) a day. Your doctor may ask you to try to eat less than 1,500 mg a day. Eat plenty of fruits (such as bananas and oranges), vegetables, legumes, whole grains, and low-fat dairy products. Lower the amount of saturated fat in your diet. Saturated fat is found in animal products such as milk, cheese, and meat. Limiting these foods may help you lose weight and also lower your risk for heart disease. Do not smoke. Smoking increases your risk for heart attack and stroke. If you need help quitting, talk to your doctor about stop-smoking programs and medicines. These can increase your chances of quitting for good. When should you call for help? Call 911 anytime you think you may need emergency care. This may mean having symptoms that suggest that your blood pressure is causing a serious heart or blood vessel problem. Your blood pressure may be over 180/120. For example, call 911 if: You have symptoms of a heart attack. These may include: Chest pain or pressure, or a strange feeling in the chest. Sweating. Shortness of breath. Nausea or vomiting. Pain, pressure, or a strange feeling in the back, neck, jaw, or upper belly or in one or both shoulders or arms. Lightheadedness or sudden weakness. A fast or irregular heartbeat. You have symptoms of a stroke. These may include: Sudden numbness, tingling, weakness, or loss of movement in your face, arm, or leg, especially on only one side of your body. Sudden vision changes. Sudden trouble speaking. Sudden confusion or trouble understanding simple statements. Sudden problems with walking or balance. A sudden, severe headache that is different from past headaches. You have severe back or belly pain. Do not wait until your blood pressure comes down on its own. Get help right away. Call your doctor now or seek immediate care if: Your blood pressure is much higher than normal (such as 180/120 or higher), but you don't have symptoms. You think high blood pressure is causing symptoms, such as: Severe headache. Blurry vision. Watch closely for changes in your health, and be sure to contact your doctor if: Your blood pressure measures higher than your doctor recommends at least 2 times. That means the top number is higher or the bottom number is higher, or both. You think you may be having side effects from your blood pressure medicine. 03/24/2025 Hypothyroidism, unspecified type (ICD-10 - E03.9) Take your thyroid hormone medicine exactly as prescribed. Call your doctor if you think you are having a problem with your medicine. Most people do not have side effects if they take the right amount of medicine regularly. *Take the medicine 30 minutes before breakfast, and do not take it with calcium, vitamins, or iron. *Do not take extra doses of your thyroid medicine. It will not help you get better any faster, and it may cause side effects. *If you forget to take a dose, do NOT take a double dose of medicine. Take your usual dose the next day. *Tell your doctor about all prescription, herbal, or nfqf-qdx-calftng products you take. *Take care of yourself. Eat a healthy diet, get enough sleep, and get regular exercise. When should you call for help? Call 911 anytime you think you may need emergency care. For example, call if: *You passed out (lost consciousness). *You have severe trouble breathing. *You have a very slow heartbeat (less than 60 beats a minute). You have a low body temperature (95 degrees F or below). Call your doctor now or seek immediate medical care if: *You feel tired, sluggish, or weak. *You have trouble remembering things or concentrating. *You do not begin to feel better 2 weeks after starting your medicine. Watch closely for changes in your health, and be sure to contact your doctor if you have any problems. 04/07/2025 Overweight (ICD-10 - E66.3) 03/24/2025 Hyperlipidemia, unspecified hyperlipidemia type (ICD-10 - E78.5) Eat a variety of foods every day. Good choices include fruits, vegetables, whole grains (like oatmeal), dried beans and peas, nuts and seeds, soy products (like tofu), and fat-free or low-fat dairy products. *Replace butter, margarine, and hydrogenated or partially hydrogenated oils with olive and canola oils. (Canola oil margarine without trans fat is fine.) *Replace red meat with fish, poultry, and soy protein (like tofu). *Limit processed and packaged foods like chips, crackers, and cookies. *Bake, broil, or steam foods. Don't gutierrez them. *Be physically active. Get at least 30 minutes of exercise on most days of the week. Walking is a good choice. You also may want to do other activities, such as running, swimming, cycling, or playing tennis or team sports. *Stay at a healthy weight or lose weight by making the changes in eating and physical activity listed above. Losing just a small amount of weight, even 5 to 10 pounds, can reduce your risk for having a heart attack or stroke. *Do not smoke. 04/07/2025 Dietary counseling (ICD-10 - Z71.3) The following information is provided to help patients understand the role BMI, nutrition, and physical activity play in a patient's overall health. Please review the information available in these links. ADULT BMI: https://www.cdc.go v/healthyweight/as sessing/bmi/adult_ bmi/english_bmi_ca lculator/bmi_calcu lator.html DIETARY GUIDELINES: https://www.dietar yguidelines.gov/si yojana/default/files/ 2020-12/Dietary_Gu idelines_for_Ameri -... PHYSICAL ACTIVITIES GUIDELINES: https://www.cdc.go v/healthyweight/ph ysical_activity/in dex.html 03/24/2025 Recurrent major depressive disorder, remission status unspecified (ICD-10 - F33.9) If you have a large task to do, break it up into smaller steps you can handle, and just do what you can. You may want to put off important decisions until your depression has lifted. If you have plans that will have a major impact on your life, such as marriage, divorce, or a job change, try to wait a bit. Talk it over with friends and loved ones who can help you look at the overall picture first. Reaching out to people for help is important. Do not isolate yourself. Let your family and friends help you. Find someone you can trust and confide in, and talk to that person. Be patient, and be kind to yourself. Remember that depression is not your fault and is not something you can overcome with willpower alone. Treatment is important for depression, just like for any other illness. Feeling better takes time, and your mood will improve little by little. Stay active Stay busy and get outside. Take a walk, or try some other light exercise. Talk with your doctor about an exercise program. Exercise can help with mild depression. Go to a movie or concert. Take part in a synagogue activity or other social gathering. Go to a ball game. Ask a friend to have dinner with you. Take care of yourself Eat a balanced diet with plenty of fresh fruits and vegetables, whole grains, and lean protein. If you have lost your appetite, eat small snacks rather than large meals. Avoid using illegal drugs or marijuana and drinking alcohol. Do not take medicines that have not been prescribed for you. They may interfere with medicines you may be taking for depression, or they may make your depression worse. Take your medicines exactly as they are prescribed. You may start to feel better within 1 to 3 weeks of taking antidepressant medicine. But it can take as many as 6 to 8 weeks to see more improvement. If you have questions or concerns about your medicines, or if you do not notice any improvement by 3 weeks, talk to your doctor. Continue to take your medicine after your symptoms improve. Taking your medicine for at least 6 months after you feel better can help keep you from getting depressed again. If this isn't the first time you have been depressed, your doctor may recommend you to take medicine even longer. If you have any side effects from your medicine, tell your doctor. Many side effects are mild and will go away on their own after you have been taking the medicine for a few weeks. Some may last longer. Talk to your doctor if side effects are bothering you too much. You might be able to try a different medicine. Continue counseling. It may help prevent depression from returning, especially if you've had multiple episodes of depression. Talk with your counselor if you are having a hard time attending your sessions or you think the sessions aren't working. Don't just stop going. Get enough sleep. Talk to your doctor if you are having problems sleeping. Avoid sleeping pills unless they are prescribed by the doctor treating your depression. Sleeping pills may make you groggy during the day, and they may interact with other medicine you are taking. If you have any other illnesses, such as diabetes, heart disease, or high blood pressure, make sure to continue with your treatment. Tell your doctor about all of the medicines you take, including those with or without a prescription. If you or someone you know talks about suicide, self-harm, or feeling hopeless, get help right away. Call the National Suicide Prevention Lifeline at 1-800-273-talk ( ) or text HOME to 590416 to access the Crisis Text Line. Consider saving these numbers in your phone. Call 453 anytime you think you may need emergency care. For example, call if: You feel like hurting yourself or someone else. Someone you know has depression and is about to attempt or is attempting suicide. Call your doctor now or seek immediate medical care if: You feel like hurting yourself or someone else. Someone you know has depression and is about to attempt or is attempting suicide. Call your doctor now or seek immediate medical care if: You hear voices. Someone you know has depression and: Starts to give away his or her possessions. Uses illegal drugs or drinks alcohol heavily. Talks or writes about , including writing suicide notes or talking about guns, knives, or pills. Starts to spend a lot of time alone. Acts very aggressively or suddenly appears calm. Watch closely for changes in your health, and be sure to contact your doctor if: You do not get better as expected. 03/24/2025 Acute respiratory failure with hypoxia (ICD-10 - J96.01) 03/24/2025 Dietary counseling (ICD-10 - Z71.3) The following information is provided to help patients understand the role BMI, nutrition, and physical activity play in a patient's overall health. Please review the information available in these links. ADULT BMI: https://www.cdc.go v/healthyweight/as sessing/bmi/adult_ bmi/english_bmi_ca lculator/bmi_calcu lator.html DIETARY GUIDELINES: https://www.dietar yguidelines.gov/si yojana/default/files/ 2020-12/Dietary_Gu idelines_for_Ameri cans-... PHYSICAL ACTIVITIES GUIDELINES: https://www.cdc.go v/healthyweight/ph ysical_activity/in dex.html 03/24/2025 Decreased appetite (ICD-10 - R63.0) 03/24/2025 Overweight (ICD-10 - E66.3) Plan Of Treatment Pending Test Test Name Order Date Procedure: Pulse Ox 03/24/2025 Future Test Test Name Order Date Helicobacter pylori IgG, Abs 04/07/2025 [facility] 04/07/2025 CBC, Diff, Automated 04/07/2025 Next Appt Details Provider Name:Padmini conde, 05/13/2025 11:00:00 AM, [address], [place], [id number], Insurance Providers Payer Name Payer Address Payer Phone Subscriber Number Group Number Insured Name Patient Relationship to Insured Coverage Start Date Coverage End Date [employer] [address] [place] [id number] Jason Jinny Self - patient is the insured Medical (General) History Medical History History ICD Code Tuberous Sclerosis with elyssa l, lung and brain lesions, developmental delay, receptive expressive language disorder, follows with [facility] HTN hyperlipidemia CKD II-III, follows with nephrology, Dr Osbaldo Barrera, on sirolimus hypothyroidism, dose reduced during hosp italization March 2025 seizures, follows with Dr Marlee rodriguez, neurology. 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 Appt with adult GI March 2025, consider repeat EGD unintentional wt loss due to GERD and constipation, hospitalized March 2025 [place]. Following with GI in [place] hx elevated uric acid depression, improved with citalopram, fo ayakaws with [facility] Surgical History Surgery Date(Month/Year) cholecystectomy 2022 kidney ablation, Dr Barrera Hospitalization History Reason Date(Month/Year) [place] atelectasis, aspi ration pneumonia, constipation, unintentional wt loss March 2025 Tuberous Sclerosis exacerbation surgery
--- OUTSIDE RECORDS SUMMARY | 2025-04-19 17:02 | XMS_ITS | Data Portability ---
Author Organization [facility], [facility] Address [address] [place] [address] [place] [address] Assessment No assessment recorded. Plan of Treatment Reminders Order Date Submit Date Provider Last Modified By Organization Details Last Modified Time Details Appointments Follow Up 15 2024 02:45P Luna Brown MD Not available Not available Not available Lab urinalysi s, dipstick 2024 025 [email or web address] [facility], [address] [place] [address], [address], 02/02/2025 16:47:46 CMP, serum or plasma 2024 025 [facility], [address] [place] [address], [address], 02/03/2025 07:31:39 CBC w/ auto diff 2024 025 [facility], [address] [place] [address], [address], 02/03/2025 07:31:40 amylase, serum or plasma 2024 025 [facility], [id number] [place] [address], [address], 02/03/2025 07:31:42 lipase, serum or plasma 2024 025 [facility], [id number] [place] [address] [place], [address], 02/03/2025 07:31:43 lipid panel, serum 2024 025 [facility], [address] [place] [address] [place], [address], 12/30/2024 09:59:21 CMP, serum or plasma 2024 025 [facility], [address] [place], [place] [address], [address], 12/30/2024 09:59:22 CBC w/ auto diff 2024 025 [facility], [facility] [place], [address], 12/30/2024 09:59:24 TSH + free T4, serum 2024 025 [facility], [facility] [place], [address], 12/30/2024 09:59:20 iron + TIBC + ferritin, serum 2024 025 [facility], [facility] [place], [address], 12/30/2024 09:59:18 rapid influenza virus A + B and SARS CoV + SARS CoV 2 Ag panel, IA, upper respirato ry specimen 2024 025 [facility], [address] [facility], [place], [address], 2024 14:52:32 Referral gastroent erologist referral 2024 025 [facility], [address] [place] [address] [place], [address], 03/29/2025 04:36:14 Procedures None recorded. Surgeries None recorded. Imaging None recorded. Medication Orders Xopenex 0.63 mg/3 mL solution for nebulizat ion 2024 025 GELA [facility] [place], [address], [address], 04/05/2025 16:13:57 pantopraz ole 40 mg tablet,de layed release 2024 025 GELA [facility], [address] [place], [address], 02/02/2025 16:26:52 levothyro xine 25 mcg tablet 2024 025 [facility], [address] [place], [address], 12/31/2024 20:53:59 Bromfed DM 2 mg-30 mg-10 mg/5 mL oral syrup 2024 025 [email or web address], [address] [place], [address], 12/29/2024 09:46:31 azithromy susy 250 mg tablet 2024 025 [email or web address], [address] [place], [address], 12/29/2024 09:46:24 Medrol (Quoc) 4 mg tablets in a dose pack 2024 025 [email or web address], [address] [place], [address], 12/29/2024 09:46:37 Patient TargetsNo targets recorded. Patient Instructions Encounter Date Encounter Id Patient Instructions Last Modified By Organization Details Last Modified Time 2024 [id number] Rapid flu and co vid are negative Sending in Rx for azithromycin, but advised mom to hold antibiotic and only give if symptoms are not improving after 2-3 days Drink plenty of water Tylenol prn Return as scheduled, sooner if problems Patient left ambulatory and stable with mom, to home [email or web address] Not available 2024 14:56:02 12/29/2024 [id number] high cholesterol : care instructions Not available 12/29/2024 10:05:30 Will check lab t cristhian. Will refill thyroid med. Continue other meds. F/u 6 months, sooner if needed. Patient leaves stable alone ambulatory to home A total of 25 minutes was spent performing some of all of the following activities during the 24 hour calendar day of the patient appointment: 1. Preparing to see the patient and reviewing previous procedures performed, pathology, lab and/or imaging. 2. Obtaining and reviewing the history, and performing a physical exam. 3. Counseling and educating the patient/family/caregiver. 4. Ordering appropriate medications, tests, and/or procedures. 5 Coordinating and scheduling procedures. 6. Referring and communicating with other health care management coordinator. 7. Documenting in the EMR. Not available 12/31/2024 20:54:38 02/02/2025 [id number] Pt had gallbladd er removed a year ago. Has had 2 week hx of abdominal pain, decreased appetite. Will restart protonix and refer to GI. F/u with worsening symptoms or after seeing GI. Patient leaves stable with parent ambulatory to home A total of 32 minutes was spent performing some of all of the following activities during the 24 hour calendar day of the patient appointment: 1. Preparing to see the patient and reviewing previous procedures performed, pathology, lab and/or imaging. 2. Obtaining and reviewing the history, and performing a physical exam. 3. Counseling and educating the patient/family/caregiver. 4. Ordering appropriate medications, tests, and/or procedures. 5 Coordinating and scheduling procedures. 6. Referring and communicating with other health care management coordinator. 7. Documenting in the EMR. Not available 02/08/2025 11:41:05 03/31/2025 [id number] spirometry, portable* snaoman Not adriano ilable 03/31/2025 17:19:12 Ms. Gomez is a [age]-year-old female with a past medical history of tuberous sclerosis, presenting to discuss the underlying cause of her hypoxemia and the subsequent requirement for continuous oxygen therapy. She was recently hospitalized for gastrointestinal symptoms and discharged on 2 L/min of supplemental oxygen. She is seeking further evaluation to determine the etiology of her persistent oxygen need. Chest CT : Numerous nodules in posterior left lower lobe, the largest measuring 1 x 0.9 cm Right-sided pleural effusion trace and adjacent atelectasis Bibasilar and right middle lobe subsegmental atelectasis Heart mildly enlarged Sclerotic foci in the vertebral body of T3, right pedicle of T5, and spinous process of T6 Spleen slightly enlarged Assessment and Plan: Hypoxemia in the setting of tuberous sclerosis Discussed potential causes, with pulmonary lymphangioleiomyomatosis (DOMINGUEZ) being a sena consideration, though less likely in the absence of pulmonary cysts on imaging and no history of pneumothorax. Other etiologies, including cardiac involvement remain on the differential. Pulmonary Function Testing (PFTs) to assess for obstructive or restrictive lung disease. Serum VEGF-D level to evaluate for DOMINGUEZ. Referral to Cardiology to assess for possible cardiac causes of hypoxemia related to tuberous sclerosis Request outside hospital records, including: Discharge summary ABG results Chest CT images Obtain nephrology records, as she is actively followed for renal involvement. pre-surgery evaluation Patient has an ARISCAT score of 41 and carries 13.3% risk of inhospital post operaitve pulmonary complications (composite including respiratory failure, respiratory infection, pleural effusion, atelectasis, pneumothorax, bronchospasm, aspiration pneumonitis). This does not take into account her poor functional status . ADDENDUM: (04/14/25) CHEST x RAY FROM 03/26/25 - right basilar atelectasis snaoman Not available 04/14/2025 09:43:11 Reason for Referral End Worker Referral for Generalized abdominal pain abdominal pain, nausea Referring Physician: Nadeem Abdalla, Family Medicine, Encounter Date: 02/02/2025 Results Created Date Observation Date Name Description Value Unit Range Abnormal Flag Note LastModifiedBy Organization Detail LastModifiedTime 07/08/20 24 07/08/2024 CYSTA TIN C [MASS /VOLU ME] IN SERUM OR PLASM A cystatin C [mass/volume ] in serum or plasma 1.61 mg/L 0.52-1 .24 high Not Available [facility] ([facility]) [address] [facility], [place], [address], 07/13/2024 08:27:32 07/08/20 24 07/08/2024 CYSTA TIN C [MASS /VOLU ME] IN SERUM OR PLASM A glomerular filtration rate/1.73 sq M.predicted [volume rate/area] in serum, plasma or blood by cystatin C-based formula 43 >=60 low REFER ENCE RANGE :>=60 mL/mi n/1.7 3mE2 THIS TEST WAS PERFO RMED AT: [facility] [address] [place], [place] Ni Larsen M.D., Ph.D. ,[employer] c[employer] of [employer] atori es Not Available [facility] ([facility]) [address] [place], [address], 07/13/2024 08:27:32 11/19/19 25 2024 rapid influ abeba virus A + B and SARS CoV + SARS CoV 2 Ag panel , [place], upper respi rator y speci men Covid negati ve Not Available [address], [address], 2024 14:30:43 11/19/19 25 2024 rapid influ abeba virus A + B and SARS CoV + SARS CoV 2 Ag panel , [place], upper respi rator y speci men Flu A negati ve Not Available [address] [place], [address], 2024 14:30:43 11/19/19 25 2024 rapid influ abeba virus A + B and SARS CoV + SARS CoV 2 Ag panel , IA, upper respi rator y speci men Flu B negati ve Not Available [address] [place], [address], 2024 14:30:43 12/30/19 25 12/30/2024 IRON, TIBC AND MARGA TIN PANEL iron, total 36 mcg/d L 40-190 low Not Available [address], [address], 12/30/2024 09:59:18 12/30/19 25 12/30/2024 IRON, TIBC AND MARGA TIN PANEL iron binding capacity 264 mcg/d L_(ca lc) 250-45 0 normal Not Available [address], [address], 12/30/2024 09:59:18 12/30/19 25 12/30/2024 IRON, TIBC AND MARGA TIN PANEL % saturation 14 %_(ca lc) 16-45 low Not Available [address], [address], 12/30/2024 09:59:18 12/30/19 25 12/30/2024 IRON, TIBC AND MARGA TIN PANEL ferritin 26 NG/mL 16-154 normal Not Available [address], [address], 12/30/2024 09:59:18 12/30/1912/30/2024 TSH+F REE T4 TSH 3.93 mIU/L normal Refer ence Range > or = 20 Years 0.40- 4.50 Pregn remy Range s First trime ster 0.26- 2.66 Secon d trime ster 0.55- 2.73 Third trime ster 0.43- 2.91 Not Available [address], [address], 12/30/2024 09:59:19 12/30/1912/30/2024 TSH+F REE T4 T4, free 0.9 NG/dL 0.8-1. 8 normal Not Available [address], [address], 12/30/2024 09:59:19 12/30/1912/30/2024 LIPID PROFI LE trig 266 mg/dL 0-149 high Not Available [facility] [address], [place], [address], 12/30/2024 09:59:21 12/30/19 25 12/30/2024 LIPID PROFI LE chol 243 mg/dL 107-20 0 high Not Available [address], [address], 12/30/2024 09:59:21 12/30/19 25 12/30/2024 LIPID PROFI LE LDL calc 155 mg/dL 0-99 high Not Available [address], [address], 12/30/2024 09:59:21 12/30/19 25 12/30/2024 LIPID PROFI LE VLDL 53.0 mg/dL Not Available [address], [address], 12/30/2024 09:59:21 12/30/19 25 12/30/2024 LIPID PROFI LE HDL 35 mg/dL 39-61 low Not Available [address], [address], 12/30/2024 09:59:21 12/30/19 25 12/30/2024 LIPID PROFI LE risk 6.94 risk Ather oscle rosis Risk Ratio s Men 1/2 avera ge 3.43 [place] ge 4.97 2x avera ge 9.55 3x avera ge 23.39 Women 1/2 avera ge 3.27 [place] ge 4.44 2x avera ge 7.[address] rage risk impli es a 20-25 % chanc e of devel oping CHD by age 60 Not Available [address], [address], 12/30/2024 09:59:21 12/30/19 25 12/30/2024 COMPR EHENS VANDA METAB OLIC PANEL glucose 75 mg/dL 74-106 Not Available [address], [address], 12/30/2024 09:59:22 12/30/19 25 12/30/2024 COMPR EHENS VANDA METAB OLIC PANEL BUN 18 mg/dL 7-17 high Not Available [address], [address], 12/30/2024 09:59:22 12/30/19 25 12/30/2024 COMPR EHENS VANDA METAB OLIC PANEL creat 0.8 mg/dL 0.7-1. 2 Not Available [address], [address], 12/30/2024 09:59:22 12/30/19 25 12/30/2024 COMPR EHENS VANDA METAB OLIC PANEL Na 134 mmol/ L 137-14 5 low Not Available [address], [address], 12/30/2024 09:59:22 12/30/19 25 12/30/2024 COMPR EHENS VANDA METAB OLIC PANEL K 4.9 mmol/ L 3.5-5. 1 Not Available [address], [address], 12/30/2024 09:59:22 12/30/19 25 12/30/2024 COMPR EHENS VANDA METAB OLIC PANEL cL 106 mmol/ L 98-107 Not Available [address], [address], 12/30/2024 09:59:22 12/30/19 25 12/30/2024 COMPR EHENS VANDA METAB OLIC PANEL CO2 20 mmol/ L 22-30 low Not Available [address], [address], 12/30/2024 09:59:22 12/30/19 25 12/30/2024 COMPR EHENS VANDA METAB OLIC PANEL Ca 8.5 mg/dL 8.4-10 .2 Not Available [address], [address], 12/30/2024 09:59:22 12/30/19 25 12/30/2024 COMPR EHENS VANDA METAB OLIC PANEL anion gap 8 mEq/L 4-12 Not Available [address], [address], 12/30/2024 09:59:22 12/30/19 25 12/30/2024 COMPR EHENS VANDA METAB OLIC PANEL BUN/creat ratio 22.5 ratio 12.0-2 0.0 high Not Available [address], [address], 12/30/2024 09:59:22 12/30/19 25 12/30/2024 COMPR EHENS VANDA METAB OLIC PANEL osmo,calc 269 mOsm/ kg 261-28 0 Not Available [address], [address], 12/30/2024 09:59:22 12/30/1912/30/2024 COMPR EHENS VANDA METAB OLIC PANEL GFR (CKD-epi) 98 mL/mi n 90-120 >=90 Michelle l 60-89 Mildl y Decre ased 45-59 Mildl y to Moder ately Decre ased 30-44 Moder ately to Sever taryn Decre ased 15-29 Sever taryn Decre ased <15 Kidne y Failu re Not Available [address], [address], 12/30/2024 09:59:22 12/30/1912/30/2024 COMPR EHENS VANDA METAB OLIC PANEL GFR-afr AM 105.0 mL/mi n 90.0-1 20.0 Stage s of chron ic kidne y disea se Stage GFR Level Michelle l kidne y funct ion 90 mL/mi n or more Stage 1 90 mL/mi n or more Stage 2 60 to 89 mL/mi n Stage 3a 45 to 59 mL/mi n Stage 3b 30 to 44 mL/mi n Stage 4 15 to 29 mL/mi n Stage 5 <15 mL/mi n or on dialy sis Not Available [address], [address], 12/30/2024 09:59:22 12/30/19 25 12/30/2024 COMPR EHENS VANDA METAB OLIC PANEL total bili < 0.10 mg/dL 0.2-1. 3 low Not Available [address], [address], 12/30/2024 09:59:22 12/30/19 25 12/30/2024 COMPR EHENS VANDA METAB OLIC PANEL AST/SGOT 28 U/L 14-36 Not Available [address], [address], 12/30/2024 09:59:22 12/30/19 25 12/30/2024 COMPR EHENS VANDA METAB OLIC PANEL ALT/SGPT 22 U/L 0-34 Not Available [address], [address], 12/30/2024 09:59:22 12/30/19 25 12/30/2024 COMPR EHENS VANDA METAB OLIC PANEL alk phos 128 U/L 38-126 high Not Available [address], [address], 12/30/2024 09:59:22 12/30/19 25 12/30/2024 COMPR EHENS VANDA METAB OLIC PANEL TP 6.6 g/dL 6.3-8. 2 Not Available [address], [address], 12/30/2024 09:59:22 12/30/19 25 12/30/2024 COMPR EHENS VANDA METAB OLIC PANEL alb 3.7 g/dL 3.5-5. 0 Not Available [address], [address], 12/30/2024 09:59:22 12/30/19 25 12/30/2024 COMPR EHENS VANDA METAB OLIC PANEL glob 2.9 g/dL 2.2-4. 2 Not Available [address], [address], 12/30/2024 09:59:22 12/30/19 25 12/30/2024 COMPR EHENS VANDA METAB OLIC PANEL A/G ratio 1.20 ratio 1.10-2 .20 Not Available [address], [address], 12/30/2024 09:59:22 12/30/19 25 12/30/2024 CBC (DIFF /PLT) WBC 3.7 K/uL 4.5-11 .0 low 1610, 12/29 Not Available [address], [address], 12/30/2024 09:59:24 12/30/19 25 12/30/2024 CBC (DIFF /PLT) RBC 3.82 M/uL 4.2-5. 4 low Not Available [address], [address], 12/30/2024 09:59:24 12/30/19 25 12/30/2024 CBC (DIFF /PLT) HGB 11.0 g/dL 12.0-1 6.0 low Not Available [address], [address], 12/30/2024 09:59:24 12/30/19 25 12/30/2024 CBC (DIFF /PLT) HCT 34.2 % 36.0-4 8.0 low Not Available [address], [address], 12/30/2024 09:59:24 12/30/19 25 12/30/2024 CBC (DIFF /PLT) MCV 89.5 fL 80-100 Not Available [address], [address], 12/30/2024 09:59:24 12/30/19 25 12/30/2024 CBC (DIFF /PLT) MCH 28.8 pg 27-32 Not Available [address], [address], 12/30/2024 09:59:24 12/30/19 25 12/30/2024 CBC (DIFF /PLT) MCHC 32.2 g/dL 31.0-3 7.0 Not Available [address], [address], 12/30/2024 09:59:24 12/30/19 25 12/30/2024 CBC (DIFF /PLT) RDW 16.6 % 12-14. 5 high Not Available [address], [address], 12/30/2024 09:59:24 12/30/19 25 12/30/2024 CBC (DIFF /PLT) plt 230 K/uL 150-45 0 1610, 12/29 Not Available [address], [address], 12/30/2024 09:59:24 12/30/19 25 12/30/2024 CBC (DIFF /PLT) MPV 9.5 fL 9.1-13 .2 Not Available [address], [address], 12/30/2024 09:59:24 12/30/19 25 12/30/2024 CBC (DIFF /PLT) neut% 62.3 % 40-70 Not Available [address], [address], 12/30/2024 09:59:24 12/30/19 25 12/30/2024 CBC (DIFF /PLT) lymph% 24.2 % 20-44 Not Available [address], [address], 12/30/2024 09:59:24 12/30/19 25 12/30/2024 CBC (DIFF /PLT) mono% 12.9 % 2-9 high Not Available [address], [address], 12/30/2024 09:59:24 12/30/19 25 12/30/2024 CBC (DIFF /PLT) eos% 0.0 % 0-4 Not Available [address], [address], 12/30/2024 09:59:24 12/30/19 25 12/30/2024 CBC (DIFF /PLT) baso% 0.3 % 0-1 Not Available [address], [address], 12/30/2024 09:59:24 12/30/19 25 12/30/2024 CBC (DIFF /PLT) neut# 2.32 K/uL 1.8-7. 7 Not Available [address], [address], 12/30/2024 09:59:24 12/30/19 25 12/30/2024 CBC (DIFF /PLT) lymph# 0.90 K/uL 0.9-4. 8 Not Available [address], [address], 12/30/2024 09:59:24 12/30/19 25 12/30/2024 CBC (DIFF /PLT) mono# 0.5 K/uL 0-0.8 Not Available [address], [address], 12/30/2024 09:59:24 12/30/19 25 12/30/2024 CBC (DIFF /PLT) eos# 0.00 K/uL 0-0.7 Not Available [address], [address], 12/30/2024 09:59:24 12/30/19 25 12/30/2024 CBC (DIFF /PLT) baso# 0.01 K/uL 0-0.2 Not Available [address], [address], 12/30/2024 09:59:24 12/30/19 25 12/30/2024 CBC (DIFF /PLT) immature grans% 0.3 % 0-0.7 Not Available [address], [address], 12/30/2024 09:59:24 12/30/19 25 12/30/2024 CBC (DIFF /PLT) immature grans# 0.01 K/uL 0.00-0 .06 Not Available [address], [address], 12/30/2024 09:59:24 12/30/19 25 12/30/2024 CBC (DIFF /PLT) NRBC/100 WBC 0.0 % 0-0 Not Available [address], [address], 12/30/2024 09:59:24 02/03/20 25 02/03/2025 COMPR EHENS VANDA METAB OLIC PANEL glucose 89 mg/dL 65-99 normal Fasti ng refer ence inter rosanne Not Available [address], [address], 02/03/2025 07:31:39 02/03/20 25 02/03/2025 COMPR EHENS VANDA METAB OLIC PANEL urea nitrogen (BUN) 14 mg/dL 7-25 normal Not Available [address] [place], [address], 02/03/2025 07:31:39 02/03/20 25 02/03/2025 COMPR EHENS VANDA METAB OLIC PANEL creatinine 0.97 mg/dL 0.50-0 .97 normal Not Available [address], [address], 02/03/2025 07:31:39 02/03/20 25 02/03/2025 COMPR EHENS VANDA METAB OLIC PANEL eGFR 78 mL/mi n/1.7 3m2 > or = 60 normal Not Available [address], [address], 02/03/2025 07:31:39 02/03/20 25 02/03/2025 COMPR EHENS VANDA METAB OLIC PANEL BUN/creatini ne ratio SEE NOTE: (calc ) 6-22 Not Repor yogi: BUN and Creat inine are withi n refer ence range . Not Available [address], [address], 02/03/2025 07:31:39 02/03/20 25 02/03/2025 COMPR EHENS VANDA METAB OLIC PANEL sodium 138 mmol/ L 135-14 6 normal Not Available [address], [address], 02/03/2025 07:31:39 02/03/20 25 02/03/2025 COMPR EHENS VANDA METAB OLIC PANEL potassium 4.1 mmol/ L 3.5-5. 3 normal Not Available [address], [address], 02/03/2025 07:31:39 02/03/20 25 02/03/2025 COMPR EHENS VANDA METAB OLIC PANEL chloride 106 mmol/ L 98-110 normal Not Available [address], [address], 02/03/2025 07:31:39 02/03/20 25 02/03/2025 COMPR EHENS VANDA METAB OLIC PANEL carbon dioxide 24 mmol/ L 20-32 normal Not Available [address], [address], 02/03/2025 07:31:39 02/03/20 25 02/03/2025 COMPR EHENS VANDA METAB OLIC PANEL calcium 8.7 mg/dL 8.6-10 .2 normal Not Available [address], [address], 02/03/2025 07:31:39 02/03/20 25 02/03/2025 COMPR EHENS VANDA METAB OLIC PANEL protein, total 6.7 g/dL 6.1-8. 1 normal Not Available [address], [address], 02/03/2025 07:31:39 02/03/20 25 02/03/2025 COMPR EHENS VANDA METAB OLIC PANEL albumin 3.7 g/dL 3.6-5. 1 normal Not Available [address], [address], 02/03/2025 07:31:39 02/03/20 25 02/03/2025 COMPR EHENS VANDA METAB OLIC PANEL globulin 3.0 g/dL_ (calc ) 1.9-3. 7 normal Not Available [address], [address], 02/03/2025 07:31:39 02/03/20 25 02/03/2025 COMPR EHENS VANDA METAB OLIC PANEL albumin/glob ulin ratio 1.2 (calc ) 1.0-2. 5 normal Not Available [address], [address], 02/03/2025 07:31:39 02/03/20 25 02/03/2025 COMPR EHENS VANDA METAB OLIC PANEL bilirubin, total 0.2 mg/dL 0.2-1. 2 normal Not Available [address], [address], 02/03/2025 07:31:39 02/03/20 25 02/03/2025 COMPR EHENS VANDA METAB OLIC PANEL alkaline phosphatase 139 U/L 31-125 high Not Available [facility] [employer] [address], [address], 02/03/2025 07:31:39 02/03/20 25 02/03/2025 COMPR EHENS VANDA METAB OLIC PANEL AST 17 U/L 10-30 normal Not Available [address], [address], 02/03/2025 07:31:39 02/03/20 25 02/03/2025 COMPR EHENS VANDA METAB OLIC PANEL ALT 17 U/L 6-29 normal Not Available [address], [address], 02/03/2025 07:31:39 02/03/20 25 02/03/2025 CBC (INCL UDES DIFF/ PLT) white blood cell count 2.7 thous and/u L 3.8-10 .8 low Not Available [address], [address], 02/03/2025 07:31:40 02/03/20 25 02/03/2025 CBC (INCL UDES DIFF/ PLT) red blood cell count 3.92 kari on/uL 3.80-5 .10 normal Not Available [address], [address], 02/03/2025 07:31:40 02/03/20 25 02/03/2025 CBC (INCL UDES DIFF/ PLT) hemoglobin 11.1 g/dL 11.7-1 5.5 low Not Available [facility] [address], [address], 02/03/2025 07:31:40 02/03/2002/03/2025 CBC (INCL UDES DIFF/ PLT) hematocrit 34.6 % 35.0-4 5.0 low Not Available [facility] [address], [address], 02/03/2025 07:31:40 02/03/20 25 02/03/2025 CBC (INCL UDES DIFF/ PLT) MCV 88.3 fL 80.0-1 00.0 normal Not Available [facility] [address], [address], 02/03/2025 07:31:40 02/03/2002/03/2025 CBC (INCL UDES DIFF/ PLT) MCH 28.3 pg 27.0-3 3.0 normal Not Available [facility] [address], [address], 02/03/2025 07:31:40 02/03/2002/03/2025 CBC (INCL UDES DIFF/ PLT) MCHC 32.1 g/dL 32.0-3 6.0 normal For adult s, a sligh t decre ase in the calcu lated MCHC value (in the range of 30 to 32 g/dL) is most likel y not clini kacie signi pako t; rian er, it shoul d be inter prete d with cauti on in [facility] n with other red cell dominique eters and the patie nt's clini manish condi tion. Not Available [facility] [address], [address], 02/03/2025 07:31:40 02/03/2002/03/2025 CBC (INCL UDES DIFF/ PLT) RDW 15.2 % 11.0-1 5.0 high Not Available [facility] [address], [address], 02/03/2025 07:31:40 02/03/20 25 02/03/2025 CBC (INCL UDES DIFF/ PLT) platelet count 199 thous and/u L 140-40 0 normal Not Available [address], [address], 02/03/2025 07:31:40 02/03/20 25 02/03/2025 CBC (INCL UDES DIFF/ PLT) MPV 10.0 fL 7.5-12 .5 normal Not Available [address], [address], 02/03/2025 07:31:40 02/03/20 25 02/03/2025 CBC (INCL UDES DIFF/ PLT) absolute neutrophils 1374 cells /uL 1500-7 800 low Not Available [address], [address], 02/03/2025 07:31:40 02/03/20 25 02/03/2025 CBC (INCL UDES DIFF/ PLT) absolute lymphocytes 907 cells /uL 850-39 00 normal Not Available [address], [address], 02/03/2025 07:31:40 02/03/20 25 02/03/2025 CBC (INCL UDES DIFF/ PLT) absolute monocytes 419 cells /uL 200-95 0 normal Not Available [address], [address], 02/03/2025 07:31:40 02/03/20 25 02/03/2025 CBC (INCL UDES DIFF/ PLT) absolute eosinophils 0 cells /uL 15-500 low Not Available [employer] [facility] [address], [address], 02/03/2025 07:31:40 02/03/20 25 02/03/2025 CBC (INCL UDES DIFF/ PLT) absolute basophils 0 cells /uL 0-200 normal Not Available [facility] Start [id number] Administratio n, [place], [address], 02/03/2025 07:31:40 02/03/20 25 02/03/2025 CBC (INCL UDES DIFF/ PLT) neutrophils 50.9 % normal Not Available [address], [address], 02/03/2025 07:31:40 02/03/20 25 02/03/2025 CBC (INCL UDES DIFF/ PLT) lymphocytes 33.6 % normal Not Available [facility] [address], [address], 02/03/2025 07:31:40 02/03/20 25 02/03/2025 CBC (INCL UDES DIFF/ PLT) monocytes 15.5 % normal Not Available [address], [address], 02/03/2025 07:31:40 02/03/20 25 02/03/2025 CBC (INCL UDES DIFF/ PLT) eosinophils 0.0 % normal Not Available [address], [address], 02/03/2025 07:31:40 02/03/20 25 02/03/2025 CBC (INCL UDES DIFF/ PLT) basophils 0.0 % normal Not Available [address], [address], 02/03/2025 07:31:40 02/03/20 25 02/03/2025 AMYLA SE amylase 42 U/L 21-101 normal Not Available [address], [address], 02/03/2025 07:31:42 02/03/20 25 02/03/2025 LIPAS E lipase 32 U/L 7-60 normal Not Available [address], [address], 02/03/2025 07:31:43 02/03/20 25 02/02/2025 urina lysis , dipst ick Leukocytes neg Not Available [address] [place], [address], 02/02/2025 16:21:11 02/03/20 25 02/02/2025 urina lysis , dipst ick Nitrite negati ve Not Available [address] [place], [address], 02/02/2025 16:21:11 02/03/20 25 02/02/2025 urina lysis , dipst ick Urobilinogen 0.2 Not Available [address] [place], [address], 02/02/2025 16:21:11 02/03/20 25 02/02/2025 urina lysis , dipst ick Protein 30 mg/dl Not Available [address] [place], [address], 02/02/2025 16:21:11 02/03/20 25 02/02/2025 urina lysis , dipst ick pH 6.0 Not Available [address] [place], [address], 02/02/2025 16:21:11 02/03/20 25 02/02/2025 urina lysis , dipst ick Blood negati ve Not Available [address] [place], [address], 02/02/2025 16:21:11 02/03/20 25 02/02/2025 urina lysis , dipst ick Blood Amount none Not Available [address] [place], [address], 02/02/2025 16:21:11 02/03/20 25 02/02/2025 urina lysis , dipst ick Specific [place] 1.025 Not Available [address], [address], 02/02/2025 16:21:11 02/03/20 25 02/02/2025 urina lysis , dipst ick Ketone neg Not Available [address], [address], 02/02/2025 16:21:11 02/03/20 25 02/02/2025 urina lysis , dipst ick Bilirubin neg Not Available [address], [address], 02/02/2025 16:21:11 02/03/20 25 02/02/2025 urina lysis , dipst ick Glucose neg Not Available [address], [address], 02/02/2025 16:21:11 02/03/20 25 02/02/2025 urina lysis , dipst ick Appearance cloudy Not Available [address], [address], 02/02/2025 16:21:11 02/03/20 25 02/02/2025 urina lysis , dipst ick Color clear Not Available [address], [address], 02/02/2025 16:21:11 03/31/20 25 03/31/2025 denisha metry , radha ble* FVC 31 Not Available [facility] [address] [place], [address], 03/31/2025 15:58:32 03/31/20 25 03/31/2025 denisha metry , radha ble* FEV1 37 Not Available [facility] [address] [place], [address], 03/31/2025 15:58:32 03/31/20 25 03/31/2025 denisha metry , radha ble* FEV1/FVC 118 Not Available [facility] [address] [place], [address], 03/31/2025 15:58:32 04/06/20 25 04/06/2025 PFT, diffu sing capac ity No observ ation record ed. [email or web address] [facility] [address] [facility] [place], [address], 04/07/2025 10:55:01 Result Notes None recorded. Problems Name Problem SNOMED Code Status Onset Date Resolution Date Notes Provider Name and Address Organization Details Recorded Time Depressi ve disorder 26205736 Active 2018 stable, with quetiapin e 100 mg QD and Lexapro 20 mg QD, Zyprexa 10 mg QD PRN Nadeem Abdalla, BOND MANAGER [address] [facility] [place], [address], [facility] 3 15:22:31 Headache 32988932 Active 2018 stable, with topiramat e XR 200 mg 1 capsule BID Nadeem Abdalla BOND MANAGER [address] [facility] [place], [address], [facility] 3 15:22:31 Chronic kidney disease 321047588 Active 2018 from notes from [facility] G1/A1 Nadeem Abdalla BOND MANAGER [address] [facility] [place], [address], [facility] 3 15:22:31 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 Active 2020 Nadeem Abdalla BOND MANAGER [address] [facility] [place], [address], [facility] 3 15:22:31 Mental health impairme nt 359957686 Active 2020 Nadeem Abdalla, BOND MANAGER [address], [place], [address], [facility] 3 15:22:31 Hypomagn esemia 402118570 Active 2022 Nadeem Abdalla, BOND MANAGER [address], [place], [address], [facility] 3 15:22:31 Pneumoni a 167754194 Active 2022 Nadeem Abdalla, BOND MANAGER [address], [place], [address], [facility] 15:22:31 Developm ental delay 414571401 Active 2022 Nadeem Abdalla, BOND MANAGER [address], [place], [address], [facility] 3 15:22:31 Dehydrat ion 69706597 Active 2022 Nadeem Abdalla, BOND MANAGER [address], [place], [address], [facility] 15:22:31 Malaise 346635501 Active 2022 Nadeem Abdalla, BOND MANAGER [address], [place], [address], [facility] 15:22:31 Nausea 950397225 Active 2022 Nadeem Abdalla, BOND MANAGER [address], [place], [address], [facility] 15:22:31 Metaboli c acidosis 53049080 Active 2022 Nadeem Abdalla, BOND MANAGER [address], [place], [address], [facility] 3 15:22:31 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 851742729 Active 2016 Antonio Mark null, [facility] 4 15:40:09 Hyperlip idemia 02118421 Active 2024 Margarita Fernandes null, [facility] 5 11:45:25 Anemia 574968160 Active 2016 stable, with Ferrous sulfate 325 mg 1 tablet QD Nadeem Abdalla, BOND MANAGER [address], [place], [address], [facility] 3 15:22:31 [facility]entia l hyperten james 45722004 Active 2016 stable, with lisinopri l 10 mg QD Nadeem Abdalla, BOND MANAGER [address], [place], [address], [facility] 3 15:22:31 Hypothyr oidism 59961637 Active 2016 stable, with levothyro xine 25 mcg 1 tablet QD Nadeem Abdalla, BOND MANAGER [address], [place], [address], [facility] 3 15:22:31 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 094696252 Completed 201608/21/2017 Ladonna Murillo null, [facility] 7 09:01:53 Seizure 89644419 Active 2016 stable, with Vimpat 200 mg 1.5 tablets BID, diazepam rectal kit PRN seizure disorder since 8 months old Nadeem Abdalla, BOND MANAGER [address], [place], [address], [facility] 3 15:22:31 Tuberous sclerosi s syndrome 4925064 Active 2016 stable, without medicatio n Nadeem Lianne, BOND MANAGER [address], [place], [address], [facility] 3 15:22:31 Hypergly cemia 74759338 Active 2016 stable, without medicatio n Nadeem Abdalla, BOND MANAGER [address] [facility] [place] [facility], [place], [address], [facility] 3 15:22:31 Pulmonar y lymphang ioleiomy omatosis 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 8 09:46:21 Notes:Some problems listed i n Document: #[id number] could not be added to this patient's chart. Please review this document and add these problems to the patient's chart manually as needed. Problem Notes None recorded. Procedures Surgical History Date Name Laterality Status Provider Name and Address Organization Details Recorded Time 10/17/19 24 cholecystectomy completed Nadeem Seymourr, HAKEEM [address] [place], [address], [facility] 10/22/2023 08:58:09 Imaging Results None recorded. Procedure Notes None recorded. Medical Equipment None Reported. Allergies No known drug allergies Medications Name Sig Start Date Stop Date Status Note LastModified by Organization Details LastModified Time metformin 500 mg tablet take 1 tablet (500 mg) by oral route 2 times per day with morning and evening meals 07/26 completed metformi n 500 mg oral tablet;R ecorded Status: Recorded on: 05/18/20 13 4:40PM;U ser: [email or web address] ;Indicat ion: Type 2 Diabetes Mellitus - () Not Available Not Available Not Available Augmentin 875 mg-125 mg tablet 1 tablet by oral route. 09/20 completed Not Available Not Available Not Available Bromfed DM 2 mg-30 mg-10 mg/5 mL oral syrup Take 10 mL every 4-6 hours by oral route as needed, for cough. 12/29 completed Not Available Not Available Not Available atorvasta tin 20 mg tablet TAKE 1 TABLET BY MOUTH EVERY DAY 2024 active Not Available Not Available Not Avai lable quetiapin e 300 mg tablet 11/21 completed quetiapi ne 300 mg Oral tablet;R ecorded Status: Recorded on: 05/18/20 13 12:00AM; Disconti nued Status: Disconti nued on: 11/21/19 16 4:42PM;U ser: [email or web address] Not Available Not Available Not Available citalopra m 40 mg tablet 40 mg by oral route. 2022 active Not Available Not Available Not Avai lable atorvasta tin 10 mg tablet TAKE ONE TABLET BY MOUTH EVERY DAY 03/18 completed Not Available Not Available Not Available azithromy susy 250 mg tablet TAKE 2 TABLETS (500 MG) BY ORAL ROUTE ONCE DAILY FOR 1 DAY THEN 1 TABLET (250 MG) BY ORAL ROUTE ONCE DAILY FOR 4 DAYS 12/29 completed Not Available Not Available Not Available levalbute rol 0.63 mg/3 mL solution for nebulizat ion INHALE 1 VIAL VIA NEBULIZE R EVERY 8 hours as directed active Not Available Not Available No t Available Zyprexa 10 mg tablet Take 1 tablet as needed by oral route. 12/18 completed Not Available Not Available Not Available fluconazo le 150 mg tablet take one tablet PO now and repeat in 3 days 08/21 completed Not Available Not Available Not Available ampicilli n 500 mg capsule Take 1 capsule every 6 hours by oral route for 7 days. 12/25 completed Not Available Not Available Not Available citalopra m 10 mg tablet TAKE 2 tablets in the AM and 1 tablet in the PM (total 30 mg daily) 03/18 completed prescrib ed by doctor in [place] Not Available Not Available Not Available Keflex 500 mg capsule Take 1 capsule 3 times a day by oral route. 08/21 completed Not Available Not Available Not Available Medrol (Quoc) 4 mg tablets in a dose pack take po as directed on the package 12/29 completed Not Available Not Available Not Available dexametha sone 6 mg tablet Take 1 tablet every day by oral route for 10 days. 08/21 completed Not Available Not Available Not Available Miconazol e-3 200 mg vaginal supposito ry insert 1 supposit ory (200 mg) by vaginal route once daily at bedtime for 3 days 12/20 completed Miconazo le-3 200 mg vaginal supposit ory;Ronaldo rded Status: Recorded on: 05/31/20 14 9:37AM;D iscontin ued Status: Disconti nued on: 12/21/19 15 7:04PM;U ser: nmiller; Est. Completi on: 06/03/20 14;Print ed: 05/31/20 14 Not Available Not Available Not Available metronida zole 500 mg tablet take one tablet TID for 10 days 11/21 completed metronid azole 500 mg oral tablet;P rescribe Status: Prescrib ed on: 05/17/20 15 3:05PM;D iscontin ued Status: Disconti nued on: 11/21/19 16 4:41PM;U ser: nmiller; Est. Completi on: 05/27/20 15;Pharm acyVerif ied: 05/17/20 15 3:05PM Not Available Not Available Not Available ciproflox acin 500 mg tablet take 1 tablet (500 mg) by oral route 2 times per day for 7 days 11/21 completed ciproflo xacin HCl 500 mg oral tablet;P rescribe Status: Prescrib ed on: 08/30/20 15 9:37AM;D iscontin ued Status: Disconti nued on: 11/21/19 16 4:41PM;U ser: nmiller; Est. Completi on: 09/06/20 15;Pharm acyVerif ied: 08/30/20 15 9:37AM Not Available Not Available Not Available sulfameth oxazole 800 mg-trimet hoprim 160 mg tablet take 1 tablet by oral route every 12 hours for 7 days 12/20 completed sulfamet hoxazole -trimeth oprim 800-160 mg oral tablet;R ecorded Status: Recorded on: 01/01/20 14 9:20AM;D iscontin ued Status: Disconti nued on: 12/21/19 15 7:04PM;U ser: nmiller; Est. Completi on: 01/08/20 14;Print ed: 01/01/20 14 Not Available Not Available Not Available tramadol 50 mg tablet Take 1 tablet twice a day by oral route as needed, for back pain. 11/19 completed Not Available Not Available Not Available quetiapin e 100 mg tablet Take 2 tablet(s ) every day by oral route in the evening. 07/04 completed Not Available Not Available Not Available levothyro xine 25 mcg tablet TAKE 1 TABLET BY MOUTH EVERY MORNING ON EMPTY STOMACH FOR THYROID 2024 active Not Available Not Available Not Avai lable amoxicill in 875 mg tablet Take 1 tablet twice a day by oral route for 10 days. 03/27 completed Not Available Not Available Not Available citalopra m 20 mg tablet Take 1 tablet every day by oral route. 04/08 completed With 10 mg tablet for total 30 mg day Not Available Not Available Not Available Depo-Prov era 150 mg/mL intramusc ular suspensio n inject 150 mg by intramus cular route every 3 months for 90 days 10/06 completed Depo-Pro vera 150 mg/mL intramus cular suspensi on;Presc ribe Status: Prescrib ed on: 10/11/20 14 9:22AM;U ser: nmiller; Est. Completi on: 10/06/20 15;Indic ation: Pregnanc y Contrace ption - (18.V259 00);Phar macyVeri fied: 10/11/20 14 9:22AM Not Available Not Available Not Available sirolimus 1 mg tablet take 2 tablets PO once a day active Not Available Not Available No t Available ciproflox acin 0.3 % eye drops one drop both eyes 5 times a day for 2 days then QID for 5 days 12/20 completed ciproflo xacin HCl 0.3 % ophthalm ic drops;Re corded Status: Recorded on: 01/27/20 14 9:59AM;D iscontin ued Status: Disconti nued on: 12/21/19 15 7:04PM;U ser: nmiller; Est. Completi on: 02/03/20 14 Not Available Not Available Not Available levothyro xine 50 mcg tablet TAKE 1 TABLET BY MOUTH EVERY MORNING ON EMPTY STOMACH FOR THYROID 08/07 completed Not Available Not Available Not Available pantopraz ole 40 mg tablet,de layed release Take 40 mg every day by oral route for 30 days. 2024 active Not Available Not Available Not Avai lable simvastat in 20 mg tablet take 1 tablet (20 mg) by oral route once daily in the evening 07/26 completed simvasta tin 20 mg oral tablet;R ecorded Status: Recorded on: 05/18/20 13 4:40PM;U ser: [email or web address] ;Indicat ion: Hypercho lesterol emia - () Not Available Not Available Not Available oseltamiv ir 75 mg capsule Take 1 capsule twice a day by oral route for 5 days. 03/27 completed Not Available Not Available Not Available lisinopri l 10 mg tablet Take 1 tablet every day by oral route. active Not Available Not Available No t Available promethaz ine 25 mg tablet Take 1 tablet 3 times a day by oral route as needed. 07/26 completed Not Available Not Available Not Available topiramat e 200 mg tablet take 1 tablet (200 mg) by oral route 2 times per day 08/21 completed Not Available Not Available Not Available lisinopri l 5 mg tablet take 1 tablet (5 mg) by oral route once daily for 90 days 02/04 completed lisinopr il 5 mg oral tablet;R ecorded Status: Recorded on: 12/21/19 15 6:56PM;D iscontin ued Status: Disconti nued on: 02/05/20 15 8:21AM;U ser: nmiller; Est. Completi on: 06/18/20 15 Not Available Not Available Not Available Vitamin D2 1,250 mcg (50,000 unit) capsule Take 1 capsule twice a week by oral route for 90 days. 04/08 completed Not Available Not Available Not Available lysine 500 mg tablet take 1 tablet by oral route 2 times a day 12/20 completed lysine 500 mg oral tablet;R ecorded Status: Recorded on: 05/18/20 13 4:42PM;D iscontin ued Status: Disconti nued on: 12/21/19 15 7:04PM;U ser: [email or web address] Not Available Not Available Not Available ondansetr on 4 mg disintegr ating tablet Place 1 tablet every 8 hours by translin gual route as needed. 2024 active Not Available Not Available Not Avai lable fluticaso ne propionat e 50 mcg/actua tion nasal spray,lorena pension [place] 1 spray every day by intranas al route. 08/21 completed only PRN Not Available Not Available Not Available Topamax 100 mg tablet take 2 tablets PO in the morning and 1 1/2 tablets at night 07/26 completed Not Available Not Available Not Available escitalop nannette 20 mg tablet 07/04 completed Not Available Not Available Not Available Rapamune 2 mg tablet Take 2 tablets every day by oral route. 08/21 completed Not Available Not Available Not Available rosuvasta tin 5 mg tablet Take 1 tablet every day by oral route. 02/24 completed Not Available Not Available Not Available diazepam 12.5 mg-15 mg-17.5 mg-20 mg rectal kit use as directed as needed (prn) 11/19 completed Not Available Not Available Not Available cholecalc iferol (vitamin D3) Take 2,000 IUs daily 03/18 completed Not Available Not Available Not Available Tylenol 650 mg. 09/13 completed Not Available Not Available Not Available ProAir HFA 90 mcg/actua tion aerosol inhaler Inhale 2 puffs every 4 hours by inhalati on route as needed. 03/18 completed Not Available Not Available Not Available FeroSul 325 mg (65 mg iron) tablet Take 1 tablet twice a day by oral route for 90 days. 02/02 completed Not Available Not Available Not Available lacosamid e 200 mg tablet Take 100 mg twice a day by oral route. 2022 active Not Available Not Available Not Avai lable Vimpat 100 mg tablet take 1 tablet PO in the morning and 1 1/2 tablets PO at night 07/26 completed Not Available Not Available Not Available Sabril 500 mg tablet 12/20 completed Sabril 500 mg Oral tablet;R ecorded Status: Recorded on: 05/18/20 13 12:00AM; Disconti nued Status: Disconti nued on: 12/21/19 15 7:04PM;U ser: [email or web address] Not Available Not Available Not Available Lortuss DM 6.25 mg-30 mg-15 mg/5 mL oral liquid take 10 millilit ers by oral route every 4-6 hours prn cough 12/20 completed Lortuss DM 6.25-30- 15 mg/5 mL oral liquid;P rescribe Status: Prescrib ed on: 09/07/20 13 12:32PM; Disconti nued Status: Disconti nued on: 12/21/19 15 7:04PM;U ser: nmiller; Est. Completi on: 09/17/20 13;Pharm acyVerif ied: 09/07/20 13 12:32PM Not Available Not Available Not Available Qudexy XR 200 mg capsule sprinkle, extended release Take 200 mg by oral route. 11/19 completed Not Available Not Available Not Available Xcopri Titration Pack 12.5 mg (14)-25 mg (14) tablets in a dose pack Take 1 tablet every day by oral route. 03/18 completed Not Available Not Available Not Available Xcopri 100 mg tablet Take 250 mg every day by oral route at bedtime. 2022 active Not Available Not Available Not Avai lable Vitals Date Recorded Body height Body temperature Body mass index (BMI) Body weight Respiratory rate Heart rate Oxygen saturation Oxygen saturation in Arterial blood by Pulse oximetry Systolic And Diastolic Provider Name and Address Organization Details Last Updated DateTime 5 170.18 cm 98.2 [degF] 35.1 kg/m2 073344. 69 g 18 /min 93 /min 97 % 97 % 108/66 mm[Hg] Margarita Fernandes [facility] 5 14:20:11 Date Recorded Body height Heart rate Respiratory rate Body temperature Body mass index (BMI) Body weight Oxygen saturation Oxygen saturation in Arterial blood by Pulse oximetry Systolic And Diastolic Provider Name and Address Organization Details Last Updated DateTime 5 170.18 cm 70 /min 12 /min 97.4 [degF] 34.8 kg/m2 718225. 91 g 98 % 98 % 110/60 mm[Hg] Maine Montgomery [facility] 5 09:53:15 Date Recorded Body height Body mass index (BMI) Body weight Respiratory rate Heart rate Oxygen saturation Oxygen saturation in Arterial blood by Pulse oximetry Body temperature Systolic And Diastolic Provider Name and Address Organization Details Last Updated DateTime 5 170.18 cm 34.1 kg/m2 55249.1 4 g 16 /min 96 /min 99 % 99 % 97.8 [degF] 114/66 mm[Hg] Maria Luz Karen [facility] 5 16:13:38 Date Recorded Body height Heart rate Respiratory rate Body mass index (BMI) Body weight Provider Name and Address Organization Details Last Updated DateTime 03/31/2025 170.18 cm 82 /min 20 /min 31.8 kg/m2 67479.25 g Nicole Holden [facility] 5 15:55:36 Social History Question Answer Notes LastModified by [email or web address] Details LastModified Time Tobacco Smoking Status Never Smoker Ladonna contreras [facility] 12/26/2016 10:45:13 What Is Your Level Of Caffeine Consumption? Moderate Information not available 07/01/2024 How Often Do You Need To Have Someone Help You When You Read Instructions, Pamphlets, Or Other Written Material From Your Doctor Or Pharmacy? 4-Often [email or web address] Information not available 08/21/2017 What Was The Date Of Your Most Recent Tobacco Screening? 02/02/2025 [email or web address] Information not available 02/02/2025 Has Tobacco Cessation Counseling Been Provided? No [email or web address] Information not available 08/21/2021 Sex: Unknown Functional Status Question Answer Note LastModified by Organizat ion Details LastModified Time Do you use any illicit or recreational drugs? No Information not available 07/01/2024 Do you or have you ever used any other forms of tobacco or nicotine? No [email or web address] Information not available 08/21/2021 What is your level of alcohol consumption? None Information not available 07/01/2024 Mental Status None recorded. Family History Relationship Description Onset Age of this Age Resolved Age Notes LastModified by Organization Details LastModified Time Father No current problems or disability [email or web address] Not available 08:44:03 Mother No current problems or disability [email or web address] Not available 08:44:03 Medical History No medical history recorded. Gynecological HistoryNo gynecological history recorded. Obstetrics History GPAL:G 0 P 0 0 0 0 Immunizations Vaccine Type Date Status Note Provider Nam e and Address Organization Details Recorded Time Hep B, adolescent or pediatric 10/16/2000 completed Nadeem Abdalla APRN [address] [place] [address], [address], [facility] 09/24/2023 09:54:55 Hep B, adolescent or pediatric 08/28/2002 sabrina Abdalla APRN [address] [place] [address], [address], [facility] 09/24/2023 09:54:55 Hep B, adolescent or pediatric 12/04/2002 sabrina Abdalla APRN [facility] [place], [address], [facility] 09/24/2023 09:54:55 MMR 10/16/2000 sabrina Abdalla APRN [address] [place], [address], [facility] 09/24/2023 09:54:54 influenza, split (incl. purified surface antigen) 08/26/2002 completed Not Available [facility] 10[facility] 22:02:54 Past Encounters Encounter ID Performer Location Encounter Start Date Encounter Closed Date Diagnosis/Indication Diagnosis SNOMED-CT Code Diagnosis ICD10 Code Diagnosis Note [id number] Patricia Cardona APRN [address] [address] 12/26/2016 10:09:01 01/02/2017 13:50:45 Fatigue 04328945 R53.83 Hyperglycemia 21830061 R 73.9 Hypothyroidism 00000793 E03.9 Hyperlipidemia 85554724 E78.5 [id number] Cassie Hicks[address] [address] 07/26/2017 08:36:19 07/26/2017 09:22:20 Urinary tract infectious disease 81086682 N39.0 [id number] Patricia Cardona[address] [address] 08/21/2017 08:46:43 08/22/2017 16:16:56 Essential hypertension 10175122 I10 stable, with medication Hypothyroidism 34258037 E03.9 stable, with medication 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 stable, with medication Specialize d medical examination 35298418 Z04.8 needed for care plan Hyperglycemia 06803013 R 73.9 stable, without medication Tuberous s clerosis syndrome 8625014 Q85.1 stable, with medication Seizure 24819906 R56.9 stable, with medication Anemia 374742407 D64.9 stable, without medication Vitamin B1 2 deficiency (non anemic) 19929027 E53.8 stable, without medication Abnormal urine 688016246 R82.90 stable, without medication Will call with results if antibiotic is indicated Fatigue 75248144 R53.83 stable, without medication Sleep apnea 64357603 G47 .30 stable, without medication [id number] Patricia Cardona[address] [address] 12/25/2017 11:12:13 12/25/2017 12:14:09 Pulmonary lymphangioleiomyomato sis 373087691 J84.81 stable, with medication Hyperglycemia 61135097 R 73.9 stable, without medication Tuberous s clerosis syndrome 5914056 Q85.1 stable, with medication Seizure 34292937 R56.9 stable, with medication Hypothyroidism 38748515 E03.9 stable, with medication Essential hypertension 56002134 I10 stable, with medication Anemia 593086566 D64.9 stable, without medication [id number] Patricia Cardona[address] [address] 08/06/2018 11:28:57 08/06/2018 13:40:03 Essential hypertension 90698652 I10 stable, with medication Pulmonary lymphangioleiomyomato sis 544896244 J84.81 stable, with medication Tuberous s clerosis syndrome 2867412 Q85.1 stable, with medication Hypothyroidism 51387287 E03.9 stable, with medication Seizure 98924636 R56.9 stable, with medication Hyperglycemia 90294108 R 73.9 stable, without medication Anemia 915933795 D64.9 stable, without medication Abnormal urine 185974979 R82.90 stable, without medication Will call with results and send in prescripti on if antibiotic is indicatedP franki has blood in urine, currently on her menses [id number] Patricia Cardona[address] [address] 11/26/2018 09:02:20 12/01/2018 07:45:24 Tuberous sclerosis syndrome 1237964 Q85.1 stable, without medication Seizure 86153919 R56.9 stable, with Vimpat 200 mg 1.5 tablets BID, diazepam rectal kit PRN Hypothyroidism 04277681 E03.9 stable, with levothyrox ine 25 mcg 1 tablet QD Essential hypertension 54279432 I10 stable, with lisinopril 10 mg QD Anemia 492962639 D64.9 stable, with Ferrous sulfate 325 mg 1 tablet QD Pulmonary lymphangioleiomyomato sis 559821840 J84.81 stable, with Sirolimus 1 mg 2 tablets QD Hyperglycemia 65482973 R 73.9 stable, without medication Abnormal urine 462589838 R82.90 stable, without medication Will call with results and send in prescripti on if antibiotic is indicatedP franki has blood in urine, currently on her menses Depressive disorder 3548 9007 F33.3 stable, with quetiapine 100 mg QD and Lexapro 20 mg QD, Zyprexa 10 mg QD PRN [id number] Patricia Cardona[address] [address] 01/15/2019 10:33:18 01/15/2019 13:41:54 Recurrent urinary tract infection 929639006 N39.[id number] [address] 06/04/2019 16:14:02 06/08/2019 08:26:18 Abdominal pain 45464064 R10.9 Fatigue 69327454 R53.83 Tuberous s clerosis syndrome 0011575 Q85.[id number] [address] 12/16/2019 09:42:33 12/21/2019 13:15:31 Pulmonary lymphangioleiomyomato sis 680379597 J84.81 Tuberous s clerosis syndrome 0536226 Q85.1 Essential hypertension 98994861 I10 Hypothyroidism 75144785 E03.9 Leukocytes in urine 2757 70002 R82.79 Allergic rhinitis 275369 04 J30.9 Blood in urine 25284919 R31.9 Waiting on C&S, will treat for UTI if indicated, recheck urine one week, [id number] Patricia[address] [address] 07/04/2020 10:59:01 07/06/2020 08:17:11 Exposure to SARS-CoV-2 307452007 Z20.[id number] [address] 09/22/2020 16:07:03 09/26/2020 14:16:45 Depressive disorder 09074491 F33.3 stable, with quetiapine 100 mg QD and Lexapro 20 mg QD, Zyprexa 10 mg QD PRN Acute urin uriel tract infection 486597946 N39.[id number] [address] 03/27/2021 10:30:12 03/28/2021 17:58:34 Essential hypertension 41807863 I10 Hypothyroidism 52513518 E03.9 Vitamin D deficiency 347 21376 E55.9 Hyperglycemia 12277805 R 73.9 stable, without medication Anemia 238474106 D64.9 stable, with Ferrous sulfate 325 mg 1 tablet QD Hyperlipidemia 67146753 E78.5 Tuberous s clerosis syndrome 0532012 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 [id number] [address] 08/21/2021 14:54:17 08/24/2021 15:43:53 Essential hypertension 83399205 I10 Vitamin D deficiency 347 26027 E55.9 Hypothyroidism 87083641 E03.9 Right uppe r quadrant pain 037975073 R10.11 With diarrheaCa regiver to discuss with mother-may need to recheck US and HIDA scan to see if gallbladde r problems are causing symptoms [id number] Patricia [address] [address] 11/14/2021 14:27:19 11/16/2021 17:58:37 Fever 737425174 R50.9 COVID-19 437522827 U07.1 Influenza caused by Influenza A virus 301451793 J09.X2 [id number] [address] 12/18/2021 11:02:00 12/25/2021 14:41:44 Hyperglycemia 80771353 R73.9 stable, without medication Hypothyroidism 59079688 E03.9 Essential hypertension 83073389 I10 Vitamin D deficiency 347 30485 E55.9 COVID-19 749281138 U07.1 Blue toes 227653605 R68. 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 Continue with specialist in [place] Seizure 70988295 R56.9 stable, with Vimpat 200 mg 1.5 tablets BID, diazepam rectal kit PRN [id number] Nadeem Abdalla [address] [address] 06/13/2023 15:57:51 06/14/2023 09:52:24 Disorder of brain 03091710 G93.40 [id number] Nadeem Abdalla [address] [address] 07/15/2023 15:30:41 07/23/2023 10:38:23 Abdominal pain 04136915 R10.9 [id number] Nadeem Abdalla [address] [address] 09/10/2023 16:08:51 09/11/2023 12:57:27 Chronic kidney disease 696770757 N18.9 Essential hypertension 42589949 I10 Hypothyroidism 23230626 E03.9 Tuberous s clerosis syndrome 0931808 Q85.1 Abdominal pain 15071161 R10.9 [id number] Nadeem Abdalla [address] [address] 09/17/2023 14:55:59 09/17/2023 17:43:49 Abdominal pain 40930100 R10.9 Chronic gastritis 914511 9 K29.50 Tuberous s clerosis syndrome 5551114 Q85.1 [id number] Patricia Cardona[address] [address] 02/27/2024 10:25:46 02/27/2024 11:54:18 Low back pain 941801673 M54.50 [id number] Nadeem Abdalla [address] [address] 03/13/2024 11:39:11 03/13/2024 15:31:48 Low back pain 572660497 M54.50 [id number] Nadeem Abdalla [address] [address] 03/18/2024 15:12:59 03/18/2024 16:50:00 Diarrhea 65501087 R19.7 Nausea 164832917 R11.0 [id number] Nadeem Abdalla [address] [address] 03/20/2024 08:13:59 03/20/2024 12:39:26 Diarrhea 12229409 R19.7 0935015 Nadeem Abdalla[address] [address] 07/01/2024 14:37:06 07/01/2024 16:08:36 Tuberous sclerosis syndrome 4994977 Q85.1 Seizure 60816227 R56.9 [id number] Nadeem Abdalla [address] [address] 07/08/2024 14:06:28 07/08/2024 14:18:06 Chronic kidney disease 228618901 N18.9 [id number] Patricia Cardona[address] [address] 2024 14:01:23 2024 14:52:49 Acute cough 5693487661 93899022 R05.1 Upper resp iratory infection 92199652 J06.9 [id number] Nadeem Abdalla [address] [address] 12/29/2024 09:42:18 12/29/2024 10:36:44 Hypothyroidism 86986009 E03.9 Depressive disorder 3548 9007 F33.3 Hyperlipidemia 51024977 E78.5 Iron defic iency anemia 95228467 D50.9 [id number] Nadeem Abdalla APRN [facility] [address] [place] [address] 02/02/2025 16:00:21 02/02/2025 16:50:10 Generalized abdominal pain 322544752 R10.84 [id number] MD [facility] [address] [place] [address] [place] [address] 03/31/2025 15:28:29 03/31/2025 16:47:26 Dyspnea on exertion 33503524 R06.09 Pulmonary lymphangioleiomyomato sis 723527537 J84.81 Chronic hy poxemic respiratory failure 785320548 J96.11 Generalize d anxiety disorder 49572065 F41.1 Health Concerns Section Related Observation LastModified by Organization Detai ls LastModified Time None Recorded Concern Status LastModified by Organization Details LastModified Time None Recorded Advance Directives Directive None Recorded Payers Insurance Date Sequence Insurance Name Policy Number Policy Herrera Covered Member ID Herrera Member ID Guarantor Name 07/01/2024 [place] (INSTITUTIONAL ) Jinny Gomez [id number] [place] Hermelinda Moran 03/31/2025 1 [employer] - [facility] (MEDICAID REPLACEMENT - HMO) [id number] Jinny Gomez [id number] [place] Hermelinda Moran 07/01/2024 2 [place]: [place]NA [place] Jinny Gomez [id number] Maria Elena Hermelinda Moran Notes Date Note Type Note Provider Name and Address Organization Details Recorded Time 2024 text/html 34 y/o female wi th sore throat and non-productive cough x 1 week. Prior to onset pt had some nausea and abdominal pain. She denies diarrhea or vomiting. Patricia Cardona, HAKEEM [address] [place], [address], [facility] 2024 14:56:31 12/29/2024 text/html Pt. here for f/u , refills on her thyroid medication and lab work today. Pt states she drank some chocolate milk this morning. Denies new problems. Nadeemgiovana Abdalla, HAKEEM [address] [place], [address], [facility] 12/31/2024 20:55:27 02/02/2025 text/html 34 y/o female presents to clinic with mom, whom is concerned with patient loss of weight, mom states patient c/o abdominal pain while eating. Mom states patient decrease in activities, loss of appetite, sleeping more. Mom states symptoms started about 2-3 weeks ago. She has lost 4 pounds over the past year. Nadeem Abdalla, HAKEEM [address] [place], [address], [facility] 02/08/2025 11:41:33 03/31/2025 text/html Patient here to establish care, history of tuberous sclerosis, had stomach issues and went to hospital, she was sent home on 2L of continous oxygen and would like to discover the underlying issue for needing oxygen continuously, states she was dx with severe sleep apnea many years ago and unable to tolerate cpap machine, states she has lost 20 pounds in the last few months, taking mirtazapine to help with no increase appetite, c/o coughing at night, currently on augmentin, no recent steroids, no inhalers or nebulizer medications Environmental History & Other Potential Exacerbating Factors: Type of dwelling: vinylBasement: {basement:yesType of floor covering(s): {floor laminateMold or mildew in home: noMice or cockroaches in home: noPets in home: yesAspirin/NSAID sensitivity? noSchool/work/day care environment: n/aDoes patient have sx of sinusitis? sometimesDoes patient have sx of GERD? sometimesPast Medical: She also has past medical history of Difficult intubation n/a Social Hx:Work Hx: noneSick Contacts: noRecent Travel: noHobbies: Ayesha Brown MD [address] [place], [address], [facility] 04/14/2025 09:43:16 OBGyn Episode No OBEpisode recorded.
--- OUTSIDE RECORDS SUMMARY | 2025-04-19 17:02 | XMS_ITS | CCD ---
Author Name Interface, C5Aahtiew lity Address [address] [place] [address] Organization [facility] Address [address] [place] [address] Care Team Providers Care Retort Load Expediter Name Role Phone Jose Manuel LUGO, Tapan Unavailable Unavailable Allergies and Adverse Reactions Medication/Group Name Reaction Severity Date latex Rash 02/02/2016 Reason for Visit Medications Date Name Route Dose Frequency Instructions Start Date End Date Status 016 Escitalopram Oral PO 3.0 TABLET( S) daily 02/02/20 16 active 016 Levothyroxine Oral PO 1.0 TABLET( S) daily 02/02/20 16 active 016 Topiramate Oral PO 1.0 TABLET( S) BID DIRECTED 0.5TAB IN AM AND 1.5 AT NIGHT 02/02/20 16 active 016 Lacosamide Oral PO 1.0 TABLET( S) BID DIRECTED 1 IN AM AND 1.5TAB AT NIGHT 02/02/20 16 active 016 Quetiapine Oral PO 1.0 TABLET( S) BID 02/02/20 16 active 016 Simvastatin Oral PO 1.0 TABLET( S) QHS 02/02/20 16 active 016 Lisinopril Oral PO 1.0 TABLET( S) daily 02/02/20 16 active 016 Sirolimus Oral PO 1.0 TABLET( S) QAM 02/02/20 16 active Problems Diagnosis Status Date of Diagnosis Resolution Date Tuberous sclerosis syndrome (disorder) Active Microcytic normochromic anemia (disorder) Active Social History Date Name Value Sex Female
--- OUTSIDE RECORDS SUMMARY | 2025-04-19 17:02 | XMS_ITS | Patient Health Record ---
Author Organization [facility] Address [address] [place] [address] Care Team Providers Care Safety Trainer Name Role Phone Percy LUGO, Padmini Primary Care Provider Keyona Reyna Unavailable [phone] Nadeem Abdalla APRN Unavailable Unavailable Toni Ross Unavailable [phone] Juliana Cao Unavailable [phone] Hussein Jauregui Unavailable [phone] Results Component Value Reference Range Notes Potassium (B) 97276 Reviewed date:04/15/2025 02:43:24 PM Interpretation: Performing Lab: Notes/Report: Potassium 4.1 3.5-5.1 MMOL/L Reason For Referral Reason Dyspnea-RAJINDER Sees a Pulm Felipe. Scheduled 02/17/2025 @ 10:50 AM Diagnosis 1 Dyspnea, unspecified (R06.00) Referring Provider First Name Nadeem Referring Provider Last Name Lianne Referring Provider Speciality Nurse Prac titioner Referred Organization [facility] Referred Provider Toni Ross Referred Address [address] [place] [address] [place],[address] Referred Provider Specialty Pulmonary Di seases General Notes Anne Marie Buchanan 07/17 11:47:13 AM >Scheduled 02/17/2025 @ 10:50 AMDewayne Meranda 07/17/2024 11:48:01 AM >Needed Mobile Device Developer Notes for Felipe.Dewayne Meranda 07/17/2024 11:48:15 AM >TO HELP EXPIDITE PATIENT'S CARE, DR. ROSS IS ASKING THAT YOU SEND A PULMONARY FUNCTION TEST ORDER TO OUR CLINIC OR TO THE HOSPITAL. PATIENT WILL NEED THIS COMPLETED BEFORE THIER APPOINTMENT. THANK YOU Referral Priority Routine Medications Medication SIG (Take, Route, Frequency, Duration) Notes Start Date End Date Status Vimpat *please review f or potential update for e-prescription and drug interaction check* Unknown Levothyroxine Sodium *please rev iew for potential update for e-prescription and drug interaction check* Active Zithromax Z-Quoc 250 MG 2 tablet on the first day, then 1 tablet daily for 4 days Orally Once a day for 5 day(s) 11/23/2011 Unknown Lisinopril 10 MG 1 tablet Orally am Active Mirtazapine 15 MG 1 tablet at bedtime Orally Once a day Active Pantoprazole Sodium 40 MG 1 tablet Orally twice a day Active Pantoprazole Sodium 40 MG 1 tablets Orally twice a day for 90 days 03/26/2025 Active Probiotic 1-250 BILLION-MG as directed Orally Active Amoxicillin-Pot Clavulanate 875-125 MG 1 tablet Orally every 12 hrs Active Sirolimus 2 MG 1 tablet Orally am Active Atorvastatin Calcium 20 MG 1 tablet Orally Once a day Active Xcopri 200 MG 1 tablet Orally PM Active Citalopram Hydrobromide 40 MG 1 capsule Orally pm Active PROzac *please review f or potential update for e-prescription and drug interaction check* Unknown Dicyclomine HCl 20 MG 1 tablet Orally Three times a day as needed 03/25/2025 Active Sabril *please review f or potential update for e-prescription and drug interaction check* Unknown Lacosamide Active Social History Tobacco Use: Social History Observation Description Date Details (start date - stop date) Never Smoker NA - NA Tobacco Control (Standard) Question Answer Notes Tobacco use: Nonsmoker AUDIT-C (Standard) Question Answer Notes Did you have a drink containing alcohol in the p ast year? No Points 0 Interpretation Negative Problems Problem Type SNOMED Code ICD Code Onset Dates Problem Status W/U Status Risk Notes Problem Acute sinusitis (63024731) Acute sinusitis, unspecified (461.9) Active confirmed Problem 27463964 Essential hypertension (I10) Active confirmed Problem Dysphagia (89350679) Dysphagia, unspecified type (R13.10) Active confirmed Problem 30205494 RAJINDER (obstructive sleep apnea) (G47.33) Active confirmed Problem 575524817 Status post cholecystectomy (Z90.49) Active confirmed Problem Peripheral vascular disease (147241920) PVD (peripheral vascular disease) (I73.9) Active confirmed Problem 650091769991 Oxygen dependent (Z99.81) Active confirmed Problem 416158311 Seizure disorder (G40.909) Active confirmed Problem 7058022 Chronic gastriti s without bleeding, unspecified gastritis type (K29.50) Active confirmed Problem 52220135 Poor appetite (R63.0) Active confirmed Problem 7699050079612 Uses continuous positive airway pressure (CPAP) ventilation at home (Z99.89) Active confirmed Problem 069283225 History of tuberculosis (Z86.11) Active confirmed Problem 300023115 L4-L5 disc bulge (M51.36) Active confirmed Vital Signs Heart Rate 124 /min 03/25/2025 Temperature 99.5 degrees Fahrenheit 03/25/2025 Respiratory Rate 20 /min 03/25/2025 Oximetry 86 % 03/25/2025 Blood pressure diastolic 80 mm Hg 03/25/2025 Weight-kg 92.99 kg 03/25/2025 Height 68 in 03/25/2025 Blood pressure systolic 125 mm Hg 03/25/2025 Weight 205 lbs 03/25/2025 BMI 31.17 kg/m2 03/25/2025 Encounters Encounter Location Date Provider Diagnosis [facility] [address] [place] [address] 03/10/2025 Hussein Jauregui [facility] [address] [place] [address] 03/26/2025 Hussein Jauregui [facility] [address] [place] [address] 03/31/2025 Hussein Jauregui [facility] [address] [place] [address] 04/07/2025 Abodunrin Badejo [facility] [address] [place] [address] 04/08/2025 Hussein Jauregui Altered bowel habits R19.4 [facility] [address] [place] [address] 03/25/2025 Hussein Jauregui Chronic gastritis without bleeding, unspecified gastritis type K29.50 ; Altered bowel habits R19.4 ; Diarrhea, unspecified type R19.7 ; Abdominal cramping R10.9 ; Status post cholecystectomy Z90.49 ; RAJINDER (obstructive sleep apnea) G47.33 ; Uses continuous positive airway pressure (CPAP) ventilation at home Z99.89 ; Essential hypertension I10 ; History of tuberculosis Z86.11 ; Oxygen dependent Z99.81 ; Seizure disorder G40.909 ; Renal insufficiency N28.9 and Depression, unspecified depression type F32.A [facility] [address] [place] [address] 04/15/2025 Juliana Cao Dysphagia, unspecified type R13.10 ; History of gastroesophageal reflux (GERD) Z87.19 and Diarrhea, unspecified type R19.7 Assessments Encounter Date Diagnosis (ICD Code) Assessment Notes Treatment Notes Treatment Clinical Notes Section Notes 03/25/2025 Chronic gastritis without bleeding, unspecified gastritis type (ICD-10 - K29.50) Obtain urgent pulmonology clearance to proceed with EGD and colonoscopy as she has required increased supplemental oxygen over the past week. ER parameters for any progressive abdominal pain especially coming back fever or dehydration. Also ER parameters for any acute cough or fever or mental status changes. Increase pantoprazole to 40 mg twice a day and okay for Levsin to alleviate abdominal cramping while completing stool studies and check a fecal calprotectin. Note she has had abdominal CT and extensive lab work within the past couple weeks per her records. Appreciate the opportunity to evaluate this complex patient with multifactorial GI issues as well as respiratory and other comorbidities with what appears to be degree of early failure to thrive as well. Keep appointment with primary care, mental health counselors as well. Patient and mother report understanding and agreement with plan of care. 03/25/2025 Altered bowel habits (ICD-10 - R19.4) 04/08/2025 Altered bowel habits (ICD-10 - R19.4) 04/15/2025 Dysphagia, unspecified type (ICD-10 - R13.10) Proceed with diagnostic EGD today. 04/15/2025 History of gastroesophageal reflux (GERD) (ICD-10 - Z87.19) Proceed with diagnostic EGD today. 03/25/2025 Diarrhea, unspecified type (ICD-10 - R19.7) Recommend diagnostic colonoscopy for further evaluation with endoscopic intervenion as indicated. Colonoscopy procedure, risks, benefits, potential complications, and potential interventions discussed. Bowel preparation was discussed and written instructions provided. Questions answered to apparent satisfaction. Verbalizes understanding. Desires to proceed with the proposed plan. Schedule colonoscopy with __ Colonoscopy bowel prep sent to preferred pharmacy and instructions were reviewed with the patient. Advised to avoid any OTC supplements, NSAIDs, and aspirin 3 days prior to endoscopy. Follow-up to be arranged based on endoscopy findings and interventions 03/25/2025 Abdominal cramping (ICD-10 - R10.9) 04/15/2025 Diarrhea, unspecified type (ICD-10 - R19.7) Proceed with diagnostic colonoscopy today. 03/25/2025 Status post cholecystectomy (ICD-10 - Z90.49) 03/25/2025 RAJINDER (obstructive sleep apnea) (ICD-10 - G47.33) 03/25/2025 Uses continuous positive airway pressure (CPAP) ventilation at home (ICD-10 - Z99.89) 03/25/2025 Essential hypertension (ICD-10 - I10) 03/25/2025 History of tuberculosis (ICD-10 - Z86.11) 03/25/2025 Oxygen dependent (ICD-10 - Z99.81) 03/25/2025 Seizure disorder (ICD-10 - G40.909) 03/25/2025 Renal insufficiency (ICD-10 - N28.9) 03/25/2025 Depression, unspecified depression type (ICD-10 - F32.A) 02/17/2025 Other I, Araceli Rocha, am scribing for, and in the presence of Dr. Toni Ross. I, Dr. Toni Ross, personally performed the services described in this documentation , as scribed by Araceli Rocha in my presence, and it is both accurate and complete. Plan Of Treatment Pending Test Test Name Order Date Culture Stool 08248, 08199, 73579, 84587 , 16856 03/25/2025 O & P Stool 20056, 65719 03/25/2025 Calprotectin Fecal 92321 03/25/2025 E Coli Shiga Like Toxin (Stool) 28858 XR Outside CD 02/27/2024 C Diff Toxin EIA--01914 03/25/2025 zzzMRI Outside CD 03/05/2024 Diagnostic Colonoscopy-52148 03/25/2025 EGD, Upper GI Diagnostic-87205 Next Appt Details Provider Name:Toni Macdonald Monchoparris, 05/05/2025 11:00:00 AM, [address] [place] [address] [address], [place], [address], Provider Name:Toni Macdonald Monchoparris, 05/05/2025 11:40:00 AM, [address] [place] [address] [address], [place], [address], Insurance Providers Payer Name Payer Address Payer Phone Subscriber Number Group Number Insured Name Patient Relationship to Insured Coverage Start Date Coverage End Date [employer] Medicaid [address] [place] [id number] Jinny Gomez Self - patient is the insured Medical (General) History Medical History History ICD Code tuberous sclerosis hypothryoidism Surgical History Surgery Date(Month/Year) Kidney Ablasion 2018 Gall Bladder Removal 09/2023
--- NOTE | 2025-04-19 17:09 | ECG_ITS ---
[facility] Unmetric Test Date: 2025-04-19 Pat Name: Jinny Gomez Department: Room: Gender: Female Rules Examiner: : 1990 Requested By: Bert Cast Order Number: [id number] Jose Juan MD: Kaushik Long M.D. Measurements Intervals [place] Rate: 123 P: 0 SD: 0 QRS: 75 QRSD: 90 T: -47 QT: 325 QTc: 467 Interpretive Statements SINUS TACHYCARDIA LOW QRS VOLTAGE IN PRECORDIAL LEADS [QRS DEFLECTION < 1.0 mV IN CHEST LEADS] POSSIBLE RIGHT VENTRICULAR CONDUCTION DELAY [RSR (QR) IN V1/V2] ST DEVIATION AND MODERATE T-WAVE ABNORMALITY, CONSIDER ANTEROLATERAL ISCHEMIA [-0.1+ mV T-WAVE IN V3-V6] ST DEVIATION AND MODERATE T-WAVE ABNORMALITY, CONSIDER INFERIOR ISCHEMIA [-0.1+ mV T-WAVE IN II/aVF] No previous ECG available for comparison Electronically Signed On 04-20-2025 08:18:27 CDT by Kaushik Long M.D. [email or web address]
--- NOTE | 2025-04-19 17:48 | ED_ITS ---
Documented by User: Bert Garza DO 04/20/25 17:35 HPI - SOB/Dyspnea 2 General: Chief Complaint: Shortness of Breath/Dyspnea Stated Complaint: low 02 x 6 weeks Time Seen by Provider: 04/19/25 17:48 History of Present Illness: Associated symptoms: Deny abdominal pain, chest pain or fever(s) Related Data Allergies Allergy/AdvReac Type Severity Reaction Status Date / Time No Known Allergies Allergy Verified 04/20/25 00:27 Review of Systems 2 Const: Denies: fever(s) or chills Card: Denies: chest pain Resp: Reports: dyspnea GI: Denies: abdominal pain : Denies: dysuria, urinary frequency or urinary urgency Musc: Denies: neck pain or back pain Skin/Breast: Denies: rash PFSH ED 2 PFSH: Medical History (Updated 04/20/25 @ 07:20 by Bert Garza DO) Renal angiomyolipoma Tuberous sclerosis Physical Exam 2 Const: COMMON NORMALS: no acute distress GENERAL APPEARANCE: cooperative and comfortable ORIENTATION/CONSCIOUSNESS: Yes awake, Yes oriented to person, Yes oriented to place and Yes oriented to time HENMT: COMMON NORMALS: normocephalic, atraumatic and hearing grossly normal bilaterally HEAD & SCALP: normocephalic and atraumatic Resp: COMMON NORMALS: normal respiratory effort, No retractions, No use of accessory muscles and clear to auscultation bilaterally AUSCULTATION: clear to auscultation bilaterally Cardio: COMMON NORMALS: regular rate, regular rhythm and No murmurs present (Cardio) RATE: regular rate RHYTHM: regular rhythm GI: COMMON NORMALS: Soft to palpation and No hepatosplenomegaly present A USCULTATION: Yes normoactive bowel sounds PALPATION: Yes Soft to palpation, No Tenderness to palpation present (GI), No Guarding due to palpation present (GI) and Yes No hepatosplenomegaly present Extremity: COMMON NORMALS: normal to inspection, capillary refill normal, no clubbing, cyanosis or edema, no calf tenderness and no pedal edema Neuro: SENSORIUM/ORIENTATION: Yes oriented to person, Yes oriented to place and Yes oriented to time Skin: COMMON NORMALS: no rashes or lesions noted GENERAL SKIN EXAM: no rashes or lesions noted Course 2 Vital Signs: Vital signs: Vital Signs Temperature 98.9 F 04/20/25 02:00 Pulse Rate 102 H 04/20/25 09:55 Respiratory Rate 20 H 04/20/25 06:00 Blood Pressure 106/66 04/20/25 09:55 Pulse Oximetry 92 04/20/25 09:55 Oxygen Delivery Me thod Nasal Cannula 04/20/25 08:00 Oxygen Flow Rate 6 04/20/25 08:00 MDM - SOB/Dyspnea Medical Decision Making 34-year-old female with complex past medical history including tuberous sclerosis in with concerns of acute on chronic respiratory failure and worsening dyspnea. Workup by previous physician reveals significant anemia that appears to be normocytic but bilateral pleural effusions significantly worse on the right side. The patient also has concerns of her infiltrates antibiotics including ceftriaxone and azithromycin have been administered blood cultures obtained family is requesting transfer to quaternary care facility such as [facility] which I think is reasonable given her complexity and need for multiple specialist. Care assumed morning shift 04/20/2025. Will repeat CBC CMP and chest x-ray. Chart reviewed. Also note patient had notation of multiple sclerotic bony lesions in the spine most dominant at T3 radiology advised further evaluation with bone scan in the future. This can be done at [facility]. Patient stable at time of transfer to [facility] Medical Records I reviewed the patient's medical records. Lab Data I reviewed the patient's lab results. 04/19/25 18:01 04/19/25 18:01 Labs/Radiology: Radiology Impressions Chest CTA 04/19/25 18:15 IMPRESSION: 1. Negative for pulmonary embolus. 2. Main pulmonary artery is enlarged which can be a finding of pulmonary artery hypertension. 3. Cardiomegaly. 4. Small pericardial effusion measuring 12 mm in thickness. 5. Large right and small left pleural effusions. 6. Hepatomegaly suspected. 7. Upper stomach demonstrates suspected gastric wall thickening posteriorly which may be due to nondistention, consider correlation with CT abdomen and pelvis with enteric and intravenous contrast to evaluate for a mass as clinically indicated. 8. Bilateral mid to lower lung bruce right greater than left airspace infiltrates. 9. Multifocal sclerotic bony lesions throughout the spine with a dominant T3 vertebral body sclerotic bony lesion concerning for metastatic disease, whole-body nuclear medicine bone scan advised for further evaluation. Abdomen/Pelvis CT 04/19/25 19:46 IMPRESSION: 1. Negative for acute inflammatory process in the abdomen or pelvis. 2. Cholecystectomy. 3. Kidneys demonstrate diffuse apparent fatty replacement of the apparent contrast in the renal collecting systems. Findings may reflect the presence of multiple underlying angiomyolipomas, renal replacement lipomatosis is also consideration. This finding is typically chronic and benign. Please correlate for renal function abnormality. 4. Please refer to same-day CT chest for findings in this area. Chest X-Ray 04/20/25 07:09 IMPRESSION: 1. Atelectasis and/or infiltrate in the middle and lower lobes of the RIGHT lung with small RIGHT pleural effusion. Very little change since 04/19/2025. Laboratory Results WBC 5.22 10^3/uL (3.29-11.43) 04/19/25 18:01 RBC 3.27 10^6/uL (3.85-5.65) L 04/19/25 18:01 Hgb 8.50 g/dL (11.27-16.99) L 04/19/25 18:01 Hct 27.9 % (36-47) L 04/19/25 18:01 MCV 85.3 fl (85-98) 04/19/25 18:01 MCH 26.0 pg (27-33) L 04/19/25 18:01 MCHC 30.5 g/dL (30-55) 04/19/25 18:01 RDW 15.9 % (12.1-15.1) H 04/19/25 18:01 Plt Count 242 10^3/cmm (157-399) 04/19/25 18:01 MPV 10.5 fL (7.4-10.4) H 04/19/25 18:01 Neut % (Auto) 78.5 % 04/19/25 18:01 Lymph % (Auto) 10.2 % 04/19/25 18:01 [place] % (Auto) 9.4 % 04/19/25 18:01 Eos % (Auto) 0.6 % 04/19/25 18:01 Baso % (Auto) 0.2 % 04/19/25 18:01 Neut # (Auto) 4.10 10^3/uL (1.8-7.7) 04/19/25 18:01 Lymph # (Auto) 0.5 10^3/uL (0.8-4.8) L 04/19/25 18:01 [place] # (Auto) 0.5 10^3/uL (0.2-0.9) 04/19/25 18:01 Eos # (Auto) 0.0 10^3/uL (0.0-0.8) 04/19/25 18:01 Baso # (Auto) 0.0 10^3/uL (0.0-0.1) 04/19/25 18:01 Nucleated RBC % (auto) 0 % 04/19/25 18: Nucleated RBCs # 0.0 /100WBC 04/19/25 18:01 Specimen Type Arterial 04/19/25 18:33 Sample Site Radial, right 04/19/25 18:33 ABG pH 7.52 (7.35-7.45) H 04/19/25 18:33 ABG pCO2 27.8 mmHg (35-45) L 04/19/25 18:33 ABG pO2 52.5 mmHg (80.0-100.0) L 04/19/25 18:33 ABG HCO3 22.6 mmol/L (22-26) 04/19/25 18:33 ABG O2 Saturation 88.3 04/19/25 18:33 ABG Base Excess 0.1 mmol/L (-2.0-2.0) 04/19/25 18:33 Riky Test Pos 04/19/25 18:33 A-a O2 Gradient 8.1 mmHg (5-10) 04/19/25 18:33 Hematocrit 26.0 % (37-47) L 04/19/25 18:33 Hgb O2 Saturation 87.6 % (95-100) L 04/19/25 18:33 Carboxyhemoglobin 1.0 %THgb (0.4-20.1) 04/19/25 18:33 Methemoglobin < 0.0 % (0.4-1.5) L 04/19/25 18:33 Total Hemoglobin 8.5 g/dL (12-16) L 04/19/25 18:33 Sodium 136.0 mmol/L (131-143) 04/19/25 18:33 Potassium 3.8 mmol/L (3.5-5.0) 04/19/25 18:33 Glucose 112.0 mg/dL (70-115) 04/19/25 18:33 Ionized Calcium 1.1 mmol/L (1.1-1.4) 04/19/25 18:33 O2 Delivery Device Nc 04/19/25 18:33 O2 Liters/Min 4.5 % 04/19/25 18:33 Line And Frame Poler ID Mohini 04/19/25 18:33 Sodium 135 mmol/L (136-145) L 04/19/25 18:01 Potassium 4.2 mmol/L (3.5-5.1) 04/19/25 18:01 Chloride 101 mmol/L (98-107) 04/19/25 18:01 Carbon Dioxide 18 mmol/L (22-29) L 04/19/25 18:01 Anion Gap 20.2 (5-19) H 04/19/25 18:01 BUN 13 mg/dL (6-20) 04/19/25 18:01 Creatinine 0.7 mg/dL (0.5-0.9) 04/19/25 18:01 GFR Calculation 95.2 mL/min (90-130) 04/19/25 18:01 Glucose 98 mg/dL (65-115) 04/19/25 18:01 Calculated Osmolality 280 mOsm/kg (285-295) L 04/19/25 18:01 Lactic Acid 0.9 mmol/L (0.5-2.2) 04/19/25 18:01 Calcium 7.8 mg/dL (8.5-10.5) L 04/19/25 18:01 Total Bilirubin 0.2 mg/dL (0.15-1.2) 04/19/25 18:01 AST 14 U/L (0-32) 04/19/25 18:01 ALT 6 U/L (0-33) 04/19/25 18:01 Alkaline Phosphatase 84 U/L (35-105) 04/19/25 18:01 Total Protein 6.9 g/dL (6.6-8.7) 04/19/25 18:01 Albumin 2.8 g/dL (3.5-5.2) L 04/19/25 18:01 Globulin 4.1 g/dL (1.3-4.6) 04/19/25 18:01 Influenza A (PCR) Negative (Negative) 04/19/25 18:48 Influenza Type B (PCR) Negative (Negative) 04/19/25 18:48 RSV (PCR) Negative (Negative) 04/19/25 18:48 SARS-CoV-2 (PCR) Negative (Negative) 04/19/25 18:48 Discharge Plan Discharge Patient Disposition: Xfer Short-Term Hosp Clinical Impression: Community acquired pneumonia, Pleural effusion, Tuberous sclerosis, Renal angiomyolipoma, Sclerosing bone dysplasia Condition: Stable Print Language: Greek Coding Level of Care Code ED Unix Architect for Chg Fwd Documented by User: Xavier Hilliard DO 04/20/25 01:59 HPI - SOB/Dyspnea 2 General: Chief Complaint: Shortness of Breath/Dyspnea Stated Complaint: low 02 x 6 weeks Time Seen by Provider: 04/19/25 17:48 History of Present Illness: HPI Narrative: 34-year-old female with tuberous scleros is and a variety of other different medical problems who presents with concerns of worsening of shortness of breath. The patient has had this ongoing and it has been getting significantly worse over the past several days prompting them to come to the emergency department for evaluation. Patient does wear oxygen over concerns of chronic respiratory failure at baseline reportedly. Related Data Allergies Allergy/AdvReac Type Severity Reaction Status Date / Time No Known Allergies Allergy Verified 04/20/25 00:27 Review of Systems 2 General: Reports: 10 or more systems reviewed and unremarkable except in HPI and below PFSH ED 2 PFSH: Medical History (Updated 04/20/25 @ 07:20 by Bert Garza DO) Renal angiomyolipoma Tuberous sclerosis Course 2 Vital Signs: Vital signs: Vital Signs Temperature 98.9 F 04/20/25 02:00 Pulse Rate 102 H 04/20/25 09:55 Respiratory Rate 20 H 04/20/25 06:00 Blood Pressure 106/66 04/20/25 09:55 Pulse Oximetry 92 04/20/25 09:55 Oxygen Delivery Me thod Nasal Cannula 04/20/25 08:00 Oxygen Flow Rate 6 04/20/25 08:00 MDM - SOB/Dyspnea Medical Decision Making 34-year-old female with complex past medical history including tuberous sclerosis in with concerns of acute on chronic respiratory failure and worsening dyspnea. Workup by previous physician reveals significant anemia that appears to be normocytic but bilateral pleural effusions significantly worse on the right side. The patient also has concerns of her infiltrates antibiotics including ceftriaxone and azithromycin have been administered blood cultures obtained family is requesting transfer to quaternary care facility such as [facility] which I think is reasonable given her complexity and need for multiple specialist. Lab Data 04/19/25 18:01 04/19/25 18:01 Labs/Radiology: Radiology Impressions Chest CTA 04/19/25 18:15 IMPRESSION: 1. Negative for pulmonary embolus. 2. Main pulmonary artery is enlarged which can be a finding of pulmonary artery hypertension. 3. Cardiomegaly. 4. Small pericardial effusion measuring 12 mm in thickness. 5. Large right and small left pleural effusions. 6. Hepatomegaly suspected. 7. Upper stomach demonstrates suspected gastric wall thickening posteriorly which may be due to nondistention, consider correlation with CT abdomen and pelvis with enteric and intravenous contrast to evaluate for a mass as clinically indicated. 8. Bilateral mid to lower lung bruce right greater than left airspace infiltrates. 9. Multifocal sclerotic bony lesions throughout the spine with a dominant T3 vertebral body sclerotic bony lesion concerning for metastatic disease, whole-body nuclear medicine bone scan advised for further evaluation. Abdomen/Pelvis CT 04/19/25 19:46 IMPRESSION: 1. Negative for acute inflammatory process in the abdomen or pelvis. 2. Cholecystectomy. 3. Kidneys demonstrate diffuse apparent fatty replacement of the apparent contrast in the renal collecting systems. Findings may reflect the presence of multiple underlying angiomyolipomas, renal replacement lipomatosis is also consideration. This finding is typically chronic and benign. Please correlate for renal function abnormality. 4. Please refer to same-day CT chest for findings in this area. Chest X-Ray 04/20/25 07:09 IMPRESSION: 1. Atelectasis and/or infiltrate in the middle and lower lobes of the RIGHT lung with small RIGHT pleural effusion. Very little change since 04/19/2025. Laboratory Results WBC 5.22 10^3/uL (3.29-11.43) 04/19/25 18:01 RBC 3.27 10^6/uL (3.85-5.65) L 04/19/25 18:01 Hgb 8.50 g/dL (11.27-16.99) L 04/19/25 18:01 Hct 27.9 % (36-47) L 04/19/25 18:01 MCV 85.3 fl (85-98) 04/19/25 18:01 MCH 26.0 pg (27-33) L 04/19/25 18:01 MCHC 30.5 g/dL (30-55) 04/19/25 18:01 RDW 15.9 % (12.1-15.1) H 04/19/25 18:01 Plt Count 242 10^3/cmm (157-399) 04/19/25 18: MPV 10.5 fL (7.4-10.4) H 04/19/25 18:01 Neut % (Auto) 78.5 % 04/19/25 18:01 Lymph % (Auto) 10.2 % 04/19/25 18:01 [place] % (Auto) 9.4 % 04/19/25 18:01 Eos % (Auto) 0.6 % 04/19/25 18:01 Baso % (Auto) 0.2 % 04/19/25 18:01 Neut # (Auto) 4.10 10^3/uL (1.8-7.7) 04/19/25 18:01 Lymph # (Auto) 0.5 10^3/uL (0.8-4.8) L 04/19/25 18:01 [place] # (Auto) 0.5 10^3/uL (0.2-0.9) 04/19/25 18:01 Eos # (Auto) 0.0 10^3/uL (0.0-0.8) 04/19/25 18:01 Baso # (Auto) 0.0 10^3/uL (0.0-0.1) 04/19/25 18: Nucleated RBC % (auto) 0 % 04/19/25 18: Nucleated RBCs # 0.0 /100WBC 04/19/25 18:01 Specimen Type Arterial 04/19/25 18:33 Sample Site Radial, right 04/19/25 18:33 ABG pH 7.52 (7.35-7.45) H 04/19/25 18:33 ABG pCO2 27.8 mmHg (35-45) L 04/19/25 18:33 ABG pO2 52.5 mmHg (80.0-100.0) L 04/19/25 18:33 ABG HCO3 22.6 mmol/L (22-26) 04/19/25 18:33 ABG O2 Saturation 88.3 04/19/25 18:33 ABG Base Excess 0.1 mmol/L (-2.0-2.0) 04/19/25 18:33 Riky Test Pos 04/19/25 18:33 A-a O2 Gradient 8.1 mmHg (5-10) 04/19/25 18:33 Hematocrit 26.0 % (37-47) L 04/19/25 18:33 Hgb O2 Saturation 87.6 % (95-100) L 04/19/25 18:33 Carboxyhemoglobin 1.0 %THgb (0.4-20.1) 04/19/25 18:33 Methemoglobin < 0.0 % (0.4-1.5) L 04/19/25 18:33 Total Hemoglobin 8.5 g/dL (12-16) L 04/19/25 18:33 Sodium 136.0 mmol/L (131-143) 04/19/25 18:33 Potassium 3.8 mmol/L (3.5-5.0) 04/19/25 18:33 Glucose 112.0 mg/dL (70-115) 04/19/25 18:33 Ionized Calcium 1.1 mmol/L (1.1-1.4) 04/19/25 18:33 O2 Delivery Device Nc 04/19/25 18:33 O2 Liters/Min 4.5 % 04/19/25 18:33 Line And Frame Poler ID [place] 04/19/25 18:33 Sodium 135 mmol/L (136-145) L 04/19/25 18:01 Potassium 4.2 mmol/L (3.5-5.1) 04/19/25 18:01 Chloride 101 mmol/L (98-107) 04/19/25 18:01 Carbon Dioxide 18 mmol/L (22-29) L 04/19/25 18:01 Anion Gap 20.2 (5-19) H 04/19/25 18:01 BUN 13 mg/dL (6-20) 04/19/25 18:01 Creatinine 0.7 mg/dL (0.5-0.9) 04/19/25 18:01 GFR Calculation 95.2 mL/min (90-130) 04/19/25 18:01 Glucose 98 mg/dL (65-115) 04/19/25 18:01 Calculated Osmolality 280 mOsm/kg (285-295) L 04/19/25 18:01 Lactic Acid 0.9 mmol/L (0.5-2.2) 04/19/25 18:01 Calcium 7.8 mg/dL (8.5-10.5) L 04/19/25 18:01 Total Bilirubin 0.2 mg/dL (0.15-1.2) 04/19/25 18:01 AST 14 U/L (0-32) 04/19/25 18:01 ALT 6 U/L (0-33) 04/19/25 18:01 Alkaline Phosphatase 84 U/L (35-105) 04/19/25 18:01 Total Protein 6.9 g/dL (6.6-8.7) 04/19/25 18:01 Albumin 2.8 g/dL (3.5-5.2) L 04/19/25 18:01 Globulin 4.1 g/dL (1.3-4.6) 04/19/25 18:01 Influenza A (PCR) Negative (Negative) 04/19/25 18:48 Influenza Type B (PCR) Negative (Negative) 04/19/25 18:48 RSV (PCR) Negative (Negative) 04/19/25 18:48 SARS-CoV-2 (PCR) Negative (Negative) 04/19/25 18:48 All radiology interpretation(s) finalized by discharge Other Data Patient's remained relatively stable and was accepted by [facility] and Dr. Causey. Patient will be transferred in good and stable condition. Discharge Plan Discharge Patient Disposition: Xfer Short-Term Hosp Clinical Impression: Community acquired pneumonia, Pleural effusion, Tuberous sclerosis, Renal angiomyolipoma, Sclerosing bone dysplasia Condition: Stable Print Language: Greek Coding Level of Care Code ED Unix Architect for Eric Reynolds
--- NOTE | 2025-04-19 18:15 | CTR_ITS ---
PROCEDURE INFORMATION: Exam: CTA Chest With Contrast Exam date and time: 04/19/2025 6:52 PM Age: 34 years old Clinical indication: Shortness of breath and other: Hypoxia; Additional info: Hypoxia tachycardia hypotension TECHNIQUE: Imaging protocol: Computed tomographic angiography of the chest with contrast. Exam focused on the arteries. 3D rendering (Not supervised by radiologist): MIP and/or 3D reconstructed images were created by the technologist. Radiation optimization: All CT scans at this facility use at least one of these dose optimization techniques: automated exposure control; mA and/or kV adjustment per patient size (includes targeted exams where dose is matched to clinical indication); or iterative reconstruction. Contrast material: OMNIPAQUE 350; Contrast volume: 68 ml; Contrast route: INTRAVENOUS (IV); COMPARISON: CR (CHEST, ) 04/19/2025 6:05 PM RADIATION DOSE METRICS: Total DLP (mGy-cm): 309.79 FINDINGS: Pulmonary arteries: Main pulmonary artery is enlarged which can be a finding of pulmonary artery hypertension. Aorta: Unremarkable. No aortic aneurysm. No aortic dissection. Lungs: Bilateral mid to lower lung bruce right greater than left airspace infiltrates. Pleural spaces: Large right and small left pleural effusions. Heart: Cardiomegaly. Small pericardial effusion measuring 12 mm in thickness. Lymph nodes: Unremarkable. No enlarged lymph nodes. Liver: Hepatomegaly suspected. Intestine: Upper stomach demonstrates suspected gastric wall thickening posteriorly which may be due to nondistention, consider correlation with CT abdomen and pelvis with enteric and intravenous contrast to evaluate for a mass as clinically indicated. Bones/joints: Multifocal sclerotic bony lesions throughout the spine with a dominant T3 vertebral body sclerotic bony lesion concerning for metastatic disease, whole-body nuclear medicine bone scan advised for further evaluation. Soft tissues: Unremarkable. CT/CT angio chest PE protcl [id number] IMPRESSION: 1. Negative for pulmonary embolus. 2. Main pulmonary artery is enlarged which can be a finding of pulmonary artery hypertension. 3. Cardiomegaly. 4. Small pericardial effusion measuring 12 mm in thickness. 5. Large right and small left pleural effusions. 6. Hepatomegaly suspected. 7. Upper stomach demonstrates suspected gastric wall thickening posteriorly which may be due to nondistention, consider correlation with CT abdomen and pelvis with enteric and intravenous contrast to evaluate for a mass as clinically indicated. 8. Bilateral mid to lower lung bruce right greater than left airspace infiltrates. 9. Multifocal sclerotic bony lesions throughout the spine with a dominant T3 vertebral body sclerotic bony lesion concerning for metastatic disease, whole-body nuclear medicine bone scan advised for further evaluation.
[2025-04-19 18:18] LABS: Hematocrit 27.9 % (36-47); Hemoglobin 8.50 g/dL (11.27-16.99); Mean Corpuscular HGB Conc 30.5 g/dL (30-55); Mean Corpuscular Hemoglobin 26.0 pg (27-33); Mean Corpuscular Volume 85.3 fl (85-98); Nucleated Red Blood Cells % 0 %; Platelet Count 242 10^3/cmm (157-399); Red Blood Count 3.27 10^6/uL (3.85-5.65); White Blood Count 5.22 10^3/uL (3.29-11.43)
[2025-04-19 18:27] LABS: Alanine Aminotransferase 6 U/L (0-33); Albumin Level 2.8 g/dL (3.5-5.2); Alkaline Phosphatase 84 U/L (35-105); Blood Urea Nitrogen 13 mg/dL (6-20); Calcium 7.8 mg/dL (8.5-10.5); Carbon Dioxide 18 mmol/L (22-29); Chloride 101 mmol/L (98-107); Creatinine Clr Calc Pharmacy 127.4596; Globulin 4.1 g/dL (1.3-4.6); Glucose 98 mg/dL (65-115); Osmolality Calculated 280 mOsm/kg (285-295); Sodium 135 mmol/L (136-145); Total Protein 6.9 g/dL (6.6-8.7)
[2025-04-19 18:28] LABS: Anion Gap 20.2 (5-19); Aspartate Amino Transferase 14 U/L (0-32); Potassium 4.2 mmol/L (3.5-5.1)
[2025-04-19 18:37] LABS: Lactic Sepsis W/Reflex 0.9 mmol/L (0.5-2.2)
[2025-04-19 18:44] LABS: ABG PCO2 27.8 mmHg (35-45); ABG PH Result 7.52 (7.35-7.45); Alveolar-Arterial Oxygen Gradi 8.1 mmHg (5-10); Arterial Blood Gas Hematocrit 26.0 % (37-47); Blood Gas Allen Test Pos; Blood Gas LPM 4.5 %; Blood Gas Operator Identificat WALCI; Blood Gas Sample Site Radial, right; Blood Gas Sample Type Arterial; Carboxyhemoglobin 1.0 %THgb (0.4-20.1); Glucose Level-ABG 112.0 mg/dL (70-115); HCO3 ABG 22.6 mmol/L (22-26); Ionized Calcium Level - ABG 1.1 mmol/L (1.1-1.4); Methemoglobin < 0.0 % (0.4-1.5); Oxygen Saturation ABG 88.3; PO2 ABG 52.5 mmHg (80.0-100.0); Potassium Level - ABG 3.8 mmol/L (3.5-5.0); Sodium Level - ABG 136.0 mmol/L (131-143)
[2025-04-19] MEDS: iohexol 350 mg/mL 500 mL Btl (per mL) IV (19:04)
[2025-04-19 19:40] LABS: Respiratory Syncytial Virus Ce NEGATIVE (Negative); SARS-CoV-2 PCR NEGATIVE (Negative)
--- NOTE | 2025-04-19 19:46 | CTR_ITS ---
PROCEDURE INFORMATION: Exam: CT Abdomen And Pelvis Without Contrast Exam date and time: 04/19/2025 8:15 PM Age: 34 years old Clinical indication: Abdominal pain; Generalized TECHNIQUE: Imaging protocol: Computed tomography of the abdomen and pelvis without contrast. Radiation optimization: All CT scans at this facility use at least one of these dose optimization techniques: automated exposure control; mA and/or kV adjustment per patient size (includes targeted exams where dose is matched to clinical indication); or iterative reconstruction. COMPARISON: CT angio chest PE protcl [id number] 04/19/2025 6:52 PM RADIATION DOSE METRICS: Total DLP (mGy-cm): 1062.4 FINDINGS: Liver: Normal. No mass. Gallbladder and biliary ducts: Cholecystectomy. Pancreas: Normal. No ductal dilation. Spleen: Normal. No splenomegaly. Adrenal glands: Normal. No mass. Kidneys and ureters: Kidneys demonstrate diffuse apparent fatty replacement of the apparent contrast in the renal collecting systems. Findings may reflect the presence of multiple underlying angiomyolipomas, renal replacement lipomatosis is also consideration. This finding is typically chronic and benign. Please correlate for renal function abnormality. Stomach and bowel: Unremarkable. No obstruction. No mucosal thickening. Appendix: No evidence of appendicitis. Intraperitoneal space: Unremarkable. No free air. No significant fluid collection. Vasculature: Unremarkable. No abdominal aortic aneurysm. Lymph nodes: Unremarkable. No enlarged lymph nodes. Urinary bladder: Unremarkable as visualized. Reproductive: Unremarkable as visualized. Bones/joints: Unremarkable. No acute fracture. Soft tissues: Unremarkable. Other findings: Please refer to same-day CT chest for findings in this area. CT/CT abdomen pelvis wo con [id number] IMPRESSION: 1. Negative for acute inflammatory process in the abdomen or pelvis. 2. Cholecystectomy. 3. Kidneys demonstrate diffuse apparent fatty replacement of the apparent contrast in the renal collecting systems. Findings may reflect the presence of multiple underlying angiomyolipomas, renal replacement lipomatosis is also consideration. This finding is typically chronic and benign. Please correlate for renal function abnormality. 4. Please refer to same-day CT chest for findings in this area.
[2025-04-19] MEDS: cefTRIAXone 1,000 mg SDV 1000 MG IVP (19:56)
[2025-04-19] MEDS: AZITHROMYCIN ADD-Vantage 500 MG in 0.9% NaCl ADD-Vantage 250 ML 250 MG IV (19:59)
[2025-04-19] MEDS: ondansetron 2 mg/ML SDV 2 mL 4 MG IVP (20:50)
[2025-04-20] VITALS (7 sets, daily range): BP systolic 101–110; BP diastolic 54–75; PULSE 102–107; RESP 18–20; TEMP 37.2; O2SAT 89–92
--- NOTE | 2025-04-20 04:58 | PC.NURSE ---
Spoke with patient's mother, she was concerned that no one had ask her about the patient's night time medications and she has missed two dose of seizure medications. Spoke with the Dr about patient's mother giving the patient her night time medications and he verbalized she could administer the home medications. Patient's mother gave the patient Xcopri 200mg and Vimpat 200mg.
[2025-04-20] MEDS: ondansetron 2 mg/ML SDV 2 mL 4 MG IVP (05:10)
--- NOTE | 2025-04-20 07:09 | XR_ITS ---
WS: [id number] Exam: XR chest 1V portable [id number] Date/Time of Exam: 04/20/2025 7:11 AM Reason For Exam: dyspnea/cough Comparison 04/19/2025. There is atelectasis and/or infiltrate of the middle and lower lobes of the RIGHT lung with small RIGHT pleural effusion. The appearance shows little change. The LEFT lung is clear. Heart size top limits normal. Low lung volumes due to limited inspiration. The mediastinum is normal in contour. Bony str uctures are intact. XR/XR chest 1V portable [id number] IMPRESSION: 1. Atelectasis and/or infiltrate in the middle and lower lobes of the RIGHT gris g with small RIGHT pleural effusion. Very little change since 04/19/2025.
--- NOTE | 2025-04-20 07:13 | PC.NURSE ---
THIS NURSE ASSUMED CARE OF PT AT 0705 FROM [facility]. THIS NURSE NOTICED PT MOTHER WAS STANDING IN THE DOORWAY OF ROOM LOOKING AT THE NURSES STATION. THIS NURSE WENT TO PT MOTHER AND ASKED IF THERE WAS ANYTHING SHE NEEDED. PT MOTHER STATED YEAH, IS SHE NEXT ON THE LIST TO GO? THIS NURSE INFORMED PT MOTHER THAT THIS NURSE HAD JUST ARRIVED AND WAS TOLD THAT REPORT WAS CALLED AND THAT WE WERE JUST WAITING ON TRANSPORT. THIS NURSE ALSO INFORMED PT MOTHER THAT THIS NURSE WAS UNAWARE OF THE ORDER OF TRANSFER AND THE COMMUNICATION WITH THE EMS COMPANY GOES THROUGH ONE PERSON SO THERE IS NO CONFUSION. PT MOTHER BECAME UPSET AND STATED WELL THEN I WANT TO TALK TO THE CHARGE NURSE. I KEEP GETTING TOLD DIFFERENT THINGS AND SHE HAS BEEN WAITING ALL NIGHT. THIS NURSE INFORMED PT MOTHER THAT THE CHARGE NURSE WOULD ONLY HAVE THE SAME INFORMATION I DID. PT MOTHER STILL UPSET AND IS REQUESTING AN UPDATE ON TRANSFER. THIS NURSE INFORMED PT MOTHER THAT SHE WOULD COMMUNICATE WITH THE APPROPRIATE PEOPLE AND TRY AND FIND OUT SOME INFORMATION. PT MOTHER VERBALIZED UNDERSTANDING BUT STILL VOICED BEING UPSET WITH THE PROCESS.
--- NOTE | 2025-04-20 08:33 | PC.NURSE ---
THIS NURSE ROUNDED ON PT. THIS NURSE ASKED PT MOTHER IF THERE WAS ANYTHING THIS NURSE COULD DO FOR HER. PT MOTHER ASKED IF THERE WAS AN UPDATE ON TRANSFER. THIS NURSE INFORMED THAT THERE WAS NO UPDATE AT THIS TIME. PT MOTHER TEARFUL. PT MOTHER STATED HE TOLD ME LAST NIGHT THAT YOU GUYS COULD NOT CARE FOR HER, SO WHY IS SHE STILL HERE? IT IS JUST SCARY. SHE ONLY WEARS 2L OF OXYGEN AT NIGHT. NOW SHE IS ON 6. WHY IS SHE CONSIDERED STABLE? THIS NURSE EDUCATED MOTHER THAT PT WAS MAINTAINING HER OXYGEN SATURATION ABOVE 90% ON THE 6L WHICH IS CONSIDERED STABLE AT THIS TIME. PT MOTHER VOICED THAT SHE WOULD JUST TAKE HER HERSELF. PT MOTHER ASKED IF SHE DID TAKE THE PT HERSELF, WOULD THEY STILL HAVE THE BED AT [facility]. THIS NURSE INFORMED PT MOTHER THAT IF SHE TAKES PT, THE PROCESS STARTS ALL OVER AT [facility]. PT MOTHER VERBALIZED UNDERSTANDING. PT MOTHER ASKED THIS NURSE TO CHECK ON STATUS OF PT TRANSFER AND LET HER KNOW. THIS NURSE VERBALIZED UNDERSTANDING AND INFORMED PT MOTHER THAT SHE WOULD UPDATE HER SOON AN UPDATE WAS GIVEN.
--- NOTE | 2025-04-20 09:29 | PC.NURSE ---
PER DR. ALMARAZ, PT IS ABLE TO TAKE HER HOME MEDICATIONS. INPATIENT PHARMACY DOES NOT HAVE SIROLIMUS 1MG IN HOUSE. PER DR. ALMARAZ, IF PT MOTHER HAS THE PT HOME MEDICATION WITH HER SHE CAN GIVE IT TO PT. MOTHER INFORMED THIS NURSE THAT SHE DID HAVE THE MEDICATION WTIH HER. THIS NURSE WITNESSED PT MOTHER GIVING PT HER 1MG OF SIROLIUMS.
== END 2025-04-20 10:01 | disposition short-term general hospital (02) ==
PROVIDERS: Family Medicine; Emergency Provider Family Medicine
DX: J18.9 Pneumonia, unspecified organism (principal); J90 Pleural effusion, not elsewhere classified; Q85.1 Tuberous sclerosis; D17.71 Benign lipomatous neoplasm of kidney; Q78.9 Osteochondrodysplasia, unspecified; Z11.52 Encounter for screening for COVID-19
CPT/HCPCS: 36415; 36600; 71045; 71275; 74176; 80051; 80053; 82330; 82805; 83605; 85025; 87040; 87637; 93005; 96361; 96365; 96375; 96376; 99285; J0456; J0696; J2405; J7030; J7050; J9999